=== PATIENT | female | born 1985 | race Caucasian/White ===

== ENCOUNTER 2022-10-04 15:10 | Outpatient (OUT) | payer BC, SELFPAY ==
--- NOTE | 2022-10-04 | XR_ITS ---
The [address] [address] Patient Name: PATTI HERMOSILLO MRN: [id number] date: 1985 Sex: F Assigned Patient Location: [facility] Current Patient Location: [facility] Accession/Order Number: [id number] Exam Date: 10/04/2022 00:00 Report Date: 10/05/2022 08:35 At the request of: SHADY MARTINEZ Procedure: XR shoulder RT min 2V PROCEDURE: XR shoulder RT min 2V HISTORY: Right shoulder pain; M25.511 ; acute right shoulder pain after falling COMPARISON: None. FINDINGS: BONES:No fracture, acute abnormality, or significant arthropathy. SOFT TISSUES:No visible soft tissue swelling. EFFUSION:None visible. OTHER: Negative. XR/XR shoulder RT min 2V IMPRESSION: 1. No acute bone abnormality. Electronically authenticated by: ALICIA PEÑA Date: 10/05/2022 08:35
== END 2022-10-04 15:11 | disposition home or self-care (01) ==
LOC: RAD 15:16
PROVIDERS: PCP Family Medicine; Visit Provider Family Medicine
DX: M25.511 Pain in right shoulder (principal)
CPT/HCPCS: 73030

== ENCOUNTER 2023-01-24 19:58 | Outpatient (REF) | payer BC, SELFPAY ==
[2023-01-28 16:09] LABS: Age Gdln ACOG Testing Note (.); HPV Aptima Negative (Negative); IGP, Aptima HPV, rfx 16/18,45 Note (.)
== END 2023-01-24 19:59 | disposition home or self-care (01) ==
LOC: LAB 19:58
PROVIDERS: PCP Family Medicine; Visit Provider Obstetrics & Gynecology
DX: Z12.4 Encounter for screening for malignant neoplasm of cervix (principal)
CPT/HCPCS: 87624; G0145

== ENCOUNTER 2023-02-07 08:55 | Outpatient (OUT) | payer BC, OTHER, SELFPAY ==
--- NOTE | 2023-02-07 09:00 | US_ITS ---
[address] [address] Patient Name: PATTI HERMOSILLO MRN: [id number] date: 1985 Sex: F Assigned Patient Location: US Current Patient Location: Accession/Order Number: [id number] Exam Date: 02/07/2023 09:05 Report Date: 02/07/2023 09:54 At the request of: ALDEN FLYNN Procedure: US pelvis w/ transvaginal EXAMINATION: US pelvis w/ transvaginal HISTORY: Pelvic Pain In Female R10.2, Dysmenorrhea N94.6 ; chronic pelvic pain, left greater than right COMPARISON: No relevant comparison available. TECHNIQUE: Transabdominal and/or transvaginal sonographic examination was performed as indicated by examination type. FINDINGS: UTERUS: Normal size and appearance. Uterus size: ENDOMETRIUM: IUD within endometrial cavity. Normal thickness and echogenicity of endometrium. Endometrial thickness: 6 mm RIGHT OVARY: Normal size and appearance. Duplex Doppler demonstrates normal waveform and flow; resistive index 0.6. Ovary size: 2.0 x 1.5 x 0.9 cm LEFT OVARY: Contains a 1.9 cm thick-walled cyst. Duplex Doppler demonstrates normal waveform and flow; resistive index 0.4. Ovary size: 2.9 x 2.2 x 2.2 cm CUL-DE-SAC: Unremarkable. No significant free fluid. BLADDER: Unremarkable. OTHER: None. US/US pelvis w/ transvaginal IMPRESSION: 1. Left ovary contains a 1.9 cm complex cyst. Follow-up ultrasound in 6 weeks is recommended to document regression. 2. IUD within endometrial cavity. No suspicious uterine or right ovary findings. Electronically authenticated by: ALICIA PEÑA Date: 02/07/2023 09:54
== END 2023-02-07 08:56 | disposition home or self-care (01) ==
LOC: US 08:55
PROVIDERS: PCP Family Medicine; Visit Provider Obstetrics & Gynecology
DX: R10.2 Pelvic and perineal pain (principal); N92.0 Excessive and frequent menstruation with regular cycle; N94.6 Dysmenorrhea, unspecified; N94.10 Unspecified dyspareunia; N83.292 Other ovarian cyst, left side; Z97.5 Presence of (intrauterine) contraceptive device
CPT/HCPCS: 76830; 76856

== ENCOUNTER 2024-11-05 12:12 | Outpatient (OUT) | payer OTHER, SELFPAY ==
--- OUTSIDE RECORDS SUMMARY | 2024-08-06 04:13 | XMS_ITS ---
Author Organization The [facility] in [place] Address [address] [place] [address] Care Team Providers Care Air Compressor Engineer Name Role Phone Masoodcalvin Alejandro Primary Care Provider REASON FOR VISIT Adderall refill Medications Medication SIG (Take, Route, Frequency, Duration) Notes Start Date End Date Status Adderall 5 MG 1 tablet Orally Daily 08/06/2024 Active Encounters Encounter Location Date Provider Diagnosis [facility] [address] [facility] [place] [address] 08/06/2024 Alejandro Bell ADHD F90.9 Assessments Encounter Date Diagnosis (ICD Code) Assessment Notes Treatment Notes Treatment Clinical Notes Section Notes 08/06/2024 ADHD (ICD-10 - F90.9) Plan Of Treatment Medication Medication Name Sig Start Date Stop Date Notes Adderall 5 MG 1 tablet Orally Daily 08/06/2024 Progress Notes * Lizeth HERMOSILLODOB:1985 ( 39 yo F)Acc No.[id number]:08/06/2024 Patient: Joss Camp AASsey :1985 A ge:39 Y S ex:Female Address:[address] [place], [place] [address], [place] [address] * Refills Refill Adderall Tablet, 5 MG, Orally, 30, 1 tablet, Daily, Refills=0 * true * Date: Generated for Derek landa/Hortenciag/eTransmitting on: 0 11/05/2024 12:17 PM EDT
--- OUTSIDE RECORDS SUMMARY | 2024-09-17 06:04 | XMS_ITS ---
Author Organization The [facility] in [place] Address [address] [place] [address] Care Team Providers Care High School Agriculture Teacher Name Role Phone Ray Alejandro Primary Care Provider REASON FOR VISIT rf adderall Medications Medication SIG (Take, Route, Frequency, Duration) Notes Start Date End Date Status Adderall 5 MG 1 tablet Orally Daily 09/17/2024 Active Encounters Encounter Location Date Provider Diagnosis [facility] [address] [facility] [place] [address] 09/17/2024 Alejandro Bell ADHD F90.9 Assessments Encounter Date Diagnosis (ICD Code) Assessment Notes Treatment Notes Treatment Clinical Notes Section Notes 09/17/2024 ADHD (ICD-10 - F90.9) Plan Of Treatment Medication Medication Name Sig Start Date Stop Date Notes Adderall 5 MG 1 tablet Orally Daily 09/17/2024 Progress Notes * Lizeth ARNOLDDOB:1985 ( 39 yo F)Acc No.[id number]:09/17/2024 Patient: Joss Camp AASsey :1985 A ge:39 Y S ex:Female Address:[address] [place] [address] [address], [place] [address] * Refills Refill Adderall Tablet, 5 MG, Orally, 30, 1 tablet, Daily, Refills=0 * true * Date: Generated for Niyahi ng/Faxing/eTransmitting on: 0 11/05/2024 12:17 PM EDT
--- OUTSIDE RECORDS SUMMARY | 2024-10-31 09:03 | XMS_ITS ---
Author Organization The [facility] in [place] Address [address] [place] [address] Care Team Providers Care Foundry Worker General Name Role Phone Masoodcalvin Alejandro Primary Care Provider REASON FOR VISIT refill Medications Medication SIG (Take, Route, Frequency, Duration) Notes Start Date End Date Status Adderall 5 MG 1 tablet Orally Daily 10/31/2024 Active Encounters Encounter Location Date Provider Diagnosis [facility] [address] [place] [address] 10/31/2024 Alejandro Masoodcalvin ADHD F90.9 Assessments Encounter Date Diagnosis (ICD Code) Assessment Notes Treatment Notes Treatment Clinical Notes Section Notes 10/31/2024 ADHD (ICD-10 - F90.9) Plan Of Treatment Medication Medication Name Sig Start Date Stop Date Notes Adderall 5 MG 1 tablet Orally Daily 10/31/2024 Progress Notes * Lizeth HERMOSILLODOB:1985 ( 39 yo F)Acc No.[id number]:10/31/2024 Patient: Joss Camp AASsey :1985 A ge:39 Y S ex:Female Address:[address] [place], [place] [address], [place] [address] * Refills Refill Adderall Tablet, 5 MG, Orally, 30, 1 tablet, Daily, Refills=0 * true * Date: Generated for Niyahi ng/Fathomasg/eTransmitting on: 0 11/05/2024 12:17 PM EDT
--- OUTSIDE RECORDS SUMMARY | 2024-11-05 10:30 | XMS_ITS | Encounter Summary ---
Author Organization [facility] Address [address] [place] [address] Care Team Providers Care Food Operations Manager Name Role Phone Andry Bell MD Primary Care Provider [phone] Reason for Visit * Reason Comments Contraception Removal/ Reinsert Encounter Details Date Type Department Care Team (Late Contact Info) Description 11/05/2024 10:30 AM EDT Procedure Visit [facility] [address] [place] [address] Kevin Gutierrez DO [address] [facility] [place] [address] Encounter for IUD removal Social History Tobacco [...] 12:00 PM EST documented in this encounter Plan of Treatment Upcoming Encounters Date Type Department Care Team (Late Contact Info) Description 11/21/2024 9:40 AM EDT Office Visit [facility]IL [facility] [address] [place] [address] Kevin Gutierrez, DO [address] [facility] [place] [address] 01/28/2025 9:20 AM EST Procedure Visit [facility] [address] [place] [phone] Kevin Gutierrez DO [address] [facility] [address] [place], [place] [phone] Scheduled Orders Name Type Priority Associated Diagnoses Orde r Schedule IUD Removal Procedures Routine Encounter for IUD removal Ordered: 11/05/2024 documented as of this encounter Procedures Procedure Name Priority Date/Time Associated Diagnosis Comments POCT , URINE Routine 11/05/2024 11:01 AM EDT Encounter for IUD removal documented in this encounter Results * POCT , urine manually resulted (11/05/2024 11:01 AM EDT) Preg Test, Ur Negative Negative Urine 11/05/2024 11:0 1 AM EDT Kevin Gutierrez DO POINT OF CARE TEST ENTER/EDIT OR DERABLES Final Result documented in this encounter Visit Diagnoses Diagnosis Encounter for IUD removal documented in this encounter Care Teams Food Operations Manager Relationship Specialty Start Date End Date Andry Bell MD [address] [facility] [place] [address] PCP - General 01/24/23 documented as of this encounter
--- OUTSIDE RECORDS SUMMARY | 2024-11-05 12:16 | XMS_ITS | Encounter Summary ---
Author Organization [facility] Address [address] [place] [address] Care Team Providers Care Pot Washer Name Role Phone Andry Bell MD Primary Care Provider [phone] Encounter Details Date Type Department Care Team (Late Contact Info) Description 01/10/2023 Abstract [facility]IL [facility] [place] [address] Kevin Gutierrez DO [facility] [place] [address] Social History Tobacco Use Types Packs/Day Years Used Date Smoking Tobacco: Never Tobacco Cessation:Counseling Given: Not Answered Alcohol Use Standard Drinks/Week Comments Not Asked 0 (1 standard drink = 0.6 oz pure alcohol) caffeine: 2-3 cups per day coffee Comments Unknown Sex and Gender Information Value Date Recorded Sex Assigned at Not on file Legal Sex Female 7:09 PM EDT Gender Identity Not on file Sexual Orientation Not on file documented as of this encounter Plan of Treatment Upcoming Encounters Date Type Department Care Team (Late st Contact Info) Description 11/21/2024 9:40 AM EDT Office Visit ANIL MAHARAJ [facility] [place] [phone] Kevin Gutierrez DO [facility] [place], [place] [phone] 01/28/2025 9:20 AM EST Procedure Visit [facility]IL MA[facility]AR[facility] [place] [phone] Kevin Gutierrez DO [address] [place] [address] [place] [address] documented as of this encounter Visit Diagnoses Not on filedocumented in this encounter Care Teams Pot Washer Relationship Specialty Start Date End Date Andry Bell MD [address] [facility] [place] [address] PCP - General 01/24/23 documented as of this encounter
--- OUTSIDE RECORDS SUMMARY | 2024-11-05 12:16 | XMS_ITS | Encounter Summary ---
Author Organization [facility] Address [address] [place] [address] Care Team Providers Care Pastrycook'S Assistant Name Role Phone Andry Bell MD Primary Care Provider [phone] Encounter Details Date Type Department Care Team (Late st Contact Info) Description 02/07/2023 Clinisync Result Encounter [facility] External Department Unsolicited Alden Gutierrez, DO [address] [place] [address] Social History Tobacco Use Types Packs/Day Years [...] on file Sexual Orientation Not on file COVID-19 Exposure Response Date Recorded In the last 10 days, have yo u been in contact with someone who was confirmed or suspected to have Coronavirus/COVID-19? No / Unsure 01/24/2023 9:44 AM EDT documented as of this encounter Plan of Treatment Upcoming Encounters Date Type Department Care Team (Late st Contact Info) Description 11/21/2024 9:40 AM EDT Office Visit [facility] [place] [address] [place] [address] Alden Gutierrez DO [address] [place] [address] 01/28/2025 9:20 AM EST Procedure Visit [facility] [address] [address] Alden Gutierrez DO [address] [place] [address] documented as of this encounter Procedures Procedure Name Priority Date/Time Associated Diagnosis Comments US PELVIS W/ TRANSVAGINAL 02/07/2023 9:54 AM EST documented in this encounter Results * US PELVIS W/ TRANSVAGINAL (02/07/2023 9:54 AM EST) Anatomical Region Laterality Modality Other 02/07/2023 9:54 AM EST Narrative 02/07/2023 9:54 AM EST The [address] [address] Ultrasound Report Signed Patient: PATTI ARNOLD MR#: [id number] : 1985 Acct:[id number] Age/Sex: 38 / F ADM Date: 02/07/23 Loc: US Attending Dr: Alden Gutierrez D.O. Ordering Physician: Alden Gutierrez D.O. Date of Service: 02/07/23 Procedure(s): US pelvis w/ transvaginal Accession Number(s): [id number] cc: Heather Shi M.D.; Alden Gutierrez D.O. The [address] [address] Patient Name: PATTI ARNOLD MRN: [id number] date: 1985 Sex: F Assigned Patient Location: US Current Patient Location: US Accession/Order Number: [id number] Exam Date: 02/07/2023 09:05 Report Date: 02/07/2023 09:54 At the request of: ALDEN GUTIERREZ Procedure: US pelvis w/ transvaginal EXAMINATION: US pelvis w/ transvaginal HISTORY: Pelvic Pain In Female R10.2, Dysmenorrhea N94.6 ; chronic pelvic pain, left greater than right COMPARISON: No relevant comparison available. TECHNIQUE: Transabdominal and/or transvaginal sonographic examination was performed as indicated by examination type. FINDINGS: UTERUS: Normal size and appearance. Uterus size: ENDOMETRIUM: IUD within endometrial cavity. Normal thickness and echogenicity of endometrium. Endometrial thickness: 6 mm RIGHT OVARY: Normal size and appearance. Duplex Doppler demonstrates normal waveform and flow; resistive index 0.6. Ovary size: 2.0 x 1.5 x 0.9 cm LEFT OVARY: Contains a 1.9 cm thick-walled cyst. Duplex Doppler demonstrates normal waveform and flow; resistive index 0.4. Ovary size: 2.9 x 2.2 x 2.2 cm CUL-DE-SAC: Unremarkable. No significant free fluid. BLADDER: Unremarkable. OTHER: None. US/US pelvis w/ transvaginal IMPRESSION: 1. Left ovary contains a 1.9 cm complex cyst. Follow-up ultrasound in 6 weeks is recommended to document regression. 2. IUD within endometrial cavity. No suspicious uterine or right ovary findings. Electronically authenticated by: THEODORE LIU Date: 02/07/2023 09:54 Dictated By: Theodore Liu M.D. Signed By: 02/07/2357 DD/ TD/TT: Repair Electric Motor Assembler: Procedure Note Radiology, Radiologist, - 02/07/2023 [place] [address] Ultrasound Report Signed Patient: PATTI ARNOLD NMR#: [id number] : 1985Acct:[id number] Age/Sex: 38 / FADM Date: 02/07/23 Loc: US Attending Dr: Alden Gutierrez D.O. Ordering Physician: Alden Gutierrez D.O. Date of Service: 02/07/23 Procedure(s): US pelvis w/ transvaginal Accession Number(s): [id number] cc: Heather Shi M.D.; Alden Gutierrez D.O. The [place] [id number] Patient Name: PATTI ARNOLD MRN: [id number] date: 1985 Sex: F Assigned Patient Location: US Current Patient Location: US Accession/Order Number: [id number] Exam Date: 02/07/2023 09:05 Report Date: 02/07/2023 09:54 At the request of: ALDEN GUTIERREZ Procedure: US pelvis w/ transvaginal EXAMINATION: US pelvis w/ transvaginal HISTORY: Pelvic Pain In Female R10.2, Dysmenorrhea N94.6 ; chronic pelvic pain, left greater than right COMPARISON: No relevant comparison available. TECHNIQUE: Transabdominal and/or transvaginal sonographic examination was performed as indicated by examination type. FINDINGS: UTERUS: Normal size and appearance. Uterus size: ENDOMETRIUM: IUD within endometrial cavity. Normal thickness andechogenicity of endometrium. Endometrial thickness: 6 mm RIGHT OVARY: Normal size and appearance. Duplex Doppler demonstratesnormal waveform and flow; resistive index 0.6. Ovary size: 2.0 x 1.5 x 0.9 cm LEFT OVARY: Contains a 1.9 cm thick-walled cyst. Duplex Dopplerdemonstrates normal waveform and flow; resistive index 0.4. Ovary size: 2.9 x 2.2 x 2.2cm CUL-DE-SAC: Unremarkable. No significant free fluid. BLADDER: Unremarkable. OTHER: None. US/US pelvis w/ transvaginal IMPRESSION: 1. Left ovary contains a 1.9 cm complex cyst. Follow-up ultrasound in 6weeks is recommended to document regression. 2. IUD within endometrial cavity. No suspicious uterine or right ovary findings. Electronically authenticated by: THEODORE LIU Date: 02/07/2023 09:54 Dictated By: Theodore Liu M.D. Signed By:02/07/23956 DD/ 3 TD/TT: Repair Electric Motor Assembler: us Alden Gutierrez DO [facility] Final Result documented in this encounter Visit Diagnoses Not on filedocumented in this encounter Care Teams Pastrycook'S Assistant Relationship Specialty Start Date End Date Andry Bell MD [address] [place] [address] PCP - General 01/24/23 documented as of this encounter
--- OUTSIDE RECORDS SUMMARY | 2024-11-05 12:17 | XMS_ITS | Clinical Summary ---
Author Organization [facility] Address [address] [place] [address] Care Team Providers Care Broke Handler Name Role Phone Andry Bell MD Primary Care Provider [phone] Allergies Active Allergy Reactions Criticality Noted Date Comments Doxycycline 10/25/2019 Hydromorphone 10/25/2019 Medications ALPRAZolam (Xanax) 0.25 MG tablet Take 0.25 mg by mouth in the morning. Active escitalopram (Lexapro) 10 MG tablet Take 20 mg by mouth in the morning. 02/23/20 22 2024 Discontinued eszopiclone (Lunesta) 2 MG tablet Take 2 mg by mouth as needed at bedtime for sleep. 11/30/19 23 2024 Discontinued Levonorgestrel (Mirena, 52 MG,) 20 MCG/DAY intrauterine device 1 Device by Intrauterine route. 2024 Discontinued Hospital, Clinic, or Other Facility Administered Medication Ordered Dose Route Frequency Start Date End Date Status Levonorgestrel intrauterine device 19.5 mgIndications:Encoun ter for IUD removal 19.5 mg IU Continuous 11/05/2024 11/05/2024 Disco ntinued Encounters Date Type Department Care Team Description 11/05/2024 10:30 AM EDT [place] [address] Kevin Gutierrez DO Encounter for IUD removal 11/04/2024 Travel 10/28/2024 [place] [phone] Naomy Moreno LPN 10/11/2024 Telephone [facility] [place] MAHARAJ [address] [place] [address] [place] [address] HiroXiao quanKATELYNN from Last 3 Months Family History Relation Name Status Comments Brother 1 Father Alive Mother Alive Sister 2 Son 1 Alive Son 2 Alive Social History Tobacco Use Types Packs/Day Years [...] on file Sexual Orientation Not on file Last Filed Vital Signs Vital Sign Reading Time Taken Comments Blood Pressure 124/82 11/05/2024 10:52 AM EDT Pulse - - Temperature - - Respiratory Rate - - Oxygen Saturation - - Inhaled Oxygen Concentration - - Weight 42.4 kg (93 lb 6.4 oz) 11/05/2024 10:52 A M EDT Height 157.5 cm (5' 2 ) 04/01/2019 12:00 PM EST Body Mass Index 17.08 04/01/2019 12:00 PM EST Plan of Treatment Upcoming Encounters Date Type Department Care Team (Late st Contact Info) Description 11/21/2024 9:40 AM EDT Office Visit [facility] [place] MAHARAJ [address] [place] [address] [place] [address] Kevin Gutierrez DO [address] [place] [address] [place] [address] 01/28/2025 9:20 AM EST Procedure Visit [facility] MA[facility] [address] [place], [place] [address] [address] Kevin Gutierrez DO [address] [place] [address] [place] [address] Procedures Procedure Name Priority Date/Time Associated Diagnosis Comments POCT , URINE Routine 11/05/2024 11:01 AM EDT Encounter for IUD removal from Last 3 Months Results * POCT , urine manually resulted (11/05/2024 11:01 AM EDT) Preg Test, Ur Negative Negative Urine 11/05/2024 11:0 1 AM EDT Kevin Matt DO POINT OF CARE TEST ENTER/EDIT OR DERABLES Final Result from Last 3 Months Insurance [employer] Care Teams Broke Handler Relationship Specialty Start Date End Date Andry Bell MD [address] [place] [address] PCP - General 01/24/23
--- OUTSIDE RECORDS SUMMARY | 2024-11-05 12:17 | XMS_ITS | Patient Health Record ---
Author Organization [facility] [place] Address [address] [place] [address] Care Team Providers Care Car Hop Name Role Phone Alejandro Bell Primary Care Provider [phone] Allergies No Known Allergies Reason For Referral No Information Medications Medication SIG (Take, Route, Frequency, Duration) Notes Start Date End Date Status Adderall 5 MG 1 tablet Orally Daily 10/31/2024 Active ALPRAZolam 0.25 MG 1 tablet Orally once daily as needed F41.9 05/14/2024 Active Ventolin HFA 108 (90 Base) MCG/ACT 2 puff as needed Inhalation every 4 hrs 03/06/2024 Active Fioricet 50-300-40 MG 1 capsule as needed Orally every 4 hrs - prn Dx Migraine (G43.1) , [id number] 03/07/2024 Active Social History Tobacco Use: Social History Observation Description Date Details (start date - stop date) Never Smoker NA - NA Alcohol Screen (Audit-C) Question Answer Notes Did you have a drink contain ing alcohol in the past year? Yes How often did you have 6 or more drinks on one occasion in the past year? Never (0 point) How many drinks did you have on a typical day when you were drinking in the past year? 5 or 6 drinks (2 points) How often did you have a dri nk containing alcohol in the past year? Monthly (2 points) Points 4 Interpretation Positive Tobacco Control (Standard) Question Answer Notes Tobacco use: Nonsmoker AUDIT-C (Standard) Question Answer Notes Did you have a drink contain ing alcohol in the past year? Yes How often did you have six o r more drinks on one occasion in the past year? Never (0 point) How many drinks did you have on a typical day when you were drinking in the past year? 1 or 2 drinks (0 point) How often did you have a dri nk containing alcohol in the past year? 2 to 3 times a week (3 points) Points 3 Interpretation Positive Problems Problem Type SNOMED Code ICD Code Onset Dates Problem Status W/U Status Risk Notes Problem [id number] Calculus of kidney (N20.0) Active confirmed Problem Anxiety (40709151) Anxiety (F41.9) Active confirmed Problem Depression (776954372) Depression (F32.9) Active confirmed Problem Migraine (71019682) Migraine (G43.909) Active confirmed Problem Attention deficit hyperactivity disorder (183957936) ADHD (F90.9) Active confirmed Vital Signs Blood pressure diastolic 68 mm Hg 07/15/2024 Height 62.5 in 07/15/2024 Blood pressure systolic 108 mm Hg 07/15/2024 Weight 95.6 lbs 07/15/2024 BMI 17.2 kg/m2 07/15/2024 Encounters Encounter Location Date Provider Diagnosis [address] [address] 12/15/2023 Alejandro Hoy ADHD F90.[address] [address] 07/15/2024 Alejandro Hoy Depression F32.9 ; Anxiety F41.9 ; ADHD F90.9 and Well adult exam Z00.[address] [address] 11/13/2023 Alejandro Hoy [address] [address] 01/16/2024 Alejandro Hoy ADHD F90.[address] [address] 02/16/2024 Alejandro Hoy ADHD F90.[address] [address] 03/06/2024 Alejandro Hoy Migraine G43.[address] [address] 03/07/2024 Alejandro Hoy Migraine G43.[address] [address] 03/19/2024 Alejandro Hoy ADHD F90.9 [facility] [address] [facility] [place] [address] 04/19/2024 Alejandro Hoy ADHD F90.9 [facility] [address] [place] [facility] [address] 05/14/2024 Alejandro Hoy [facility] [address] [place] [facility] [address] 05/21/2024 Alejandro Hoy ADHD F90.9 [facility] [address] [facility] [place] [address] 07/03/2024 Alejandro Hoy ADHD F90.9 [facility] [address] [facility] [place] [address] 08/06/2024 Alejandro Hoy ADHD F90.9 [facility] [address] [facility] [place] [address] 09/17/2024 Alejandro Hoy ADHD F90.9 [facility] [address] [facility] [place] [address] 10/31/2024 Alejandro Hoy ADHD F90.9 Assessments Encounter Date Diagnosis (ICD Code) Assessment Notes Treatment Notes Treatment Clinical Notes Section Notes 01/16/2024 ADHD (ICD-10 - F90.9) 02/16/2024 ADHD (ICD-10 - F90.9) 03/06/2024 Migraine (ICD-10 - G43.909) 03/07/2024 Migraine (ICD-10 - G43.909) 03/19/2024 ADHD (ICD-10 - F90.9) 04/19/2024 ADHD (ICD-10 - F90.9) 05/21/2024 ADHD (ICD-10 - F90.9) 07/03/2024 ADHD (ICD-10 - F90.9) 08/06/2024 ADHD (ICD-10 - F90.9) 09/17/2024 ADHD (ICD-10 - F90.9) 10/31/2024 ADHD (ICD-10 - F90.9) 12/15/2023 ADHD (ICD-10 - F90.9) controled [facility] meds 07/15/2024 Anxiety (ICD-10 - F41.9) cuttin back on alporazolam 07/15/2024 Depression (ICD-10 - F32.9) able to wean of lexapro 07/15/2024 ADHD (ICD-10 - F90.9) able to wan adhd meds 07/15/2024 Well adult exam (ICD-10 - Z00.00) Plan Of Treatment Pending Test Test Name Order Date HEMOGLOBIN A1C (GLYCO) 07/15/2024 IRON, TOTAL 07/15/2024 LIPID PANEL (CHOL/TRIG/HDL/LDL) 07/16/19 25 VITAMIN D, 25 LEVEL (TOTAL) 07/15/2024 UA (URINALYSIS), COMPLETE (98312) - IN O FFICE 12/22/2022 Insulin Level 07/15/2024 STOOL OCCULT BLOOD 07/15/2024 THYROID PANEL (T4/TSH/FREE T3) CMP (COMP MET HEADLEY) w/eGFR CKD-EPI 2024 CBC WITH DIFF 07/15/2024 Insurance Providers Payer Name Payer Address Payer Phone Subscriber Number Group Number Insured Name Patient Relationship to Insured Coverage Start Date Coverage End Date O [address] [place], [place] [id number] Lizeth Arnold Self - patient is the insured Medications Administered Medication Instructions Date of Administration Dosage Notes Ketorolac Tromethamine 12/22/2022 60 mg Ketorolac Tromethamine 12/29/2022 60 mg Medical (General) History Medical History History ICD Code Asthma J45.909 Anxiety F41.9 Depression F32.9 Fibrocystic breast N60.19 Lump of right breast N63.10 Migraine G43.909 Surgical History Surgery Date(Month/Year) DELIVERYx2 Mirena removal CHOLECYSTECTOMY
--- OUTSIDE RECORDS SUMMARY | 2024-11-05 12:17 | XMS_ITS | Encounter Summary ---
Author Organization [facility] Address [address] [place] [address] Care Team Providers Care Correctional Facility Nurse Name Role Phone Andry Bell MD Primary Care Provider [phone] Encounter Details Date Type Department Care Team (Late Contact Info) Description 10/28/2024 Orders Only [facility]IL [facility] [place] [address] Naomy Moreno LPN [address] [place] [address] Social History Tobacco Use Types Packs/Day Years [...] Description 11/21/2024 9:40 AM EDT Office Visit [facility] [place] [address] Kevin Gutierrez DO [address] [place] [address] Dr Niesha Stern, [facility] 01/28/2025 9:20 AM EST Procedure Visit ANIL MAHARAJ [address] [place] [address] [place] [address] Kevin Gutierrez, DO [address] [place] [address] [place] [address] documented as of this encounter Procedures Procedure Name Priority Date/Time Associated Diagnosis Comments PAP SMEAR Routine 01/24/2023 12:00 AM EDT documented in this encounter Results * Pap Smear (01/24/2023 12:00 AM EDT) Swab Cervical swab / Unknown Matt Nurse [facility] CYTOLOGY ORDERABLES Final Result EXTERNAL LAB documented in this encounter Visit Diagnoses Not on filedocumented in this encounter Care Teams Correctional Facility Nurse Relationship Specialty Start Date End Date Andry Bell MD [address] [facility] [place] [place] [address] PCP - General 01/24/23 documented as of this encounter
--- OUTSIDE RECORDS SUMMARY | 2024-11-05 12:17 | XMS_ITS | Clinical Summary ---
Author Organization [facility] Address [address] [place] [address] Care Team Providers Care Acetylene Torch Solderer Name Role Phone Heather Shi MD Primary Care Provider [phone] Allergies Active Allergy Reactions Criticality Noted Date Comments Hydromorphone 10/25/2019 Doxycycline 10/25/2019 Medications ALPRAZolam 0.25 MG tablet Take 0.25 mg by mouth 3 times daily as needed. Active levonorgestrel (Mirena, 52 MG,) 20 MCG/24HR 1 Device by Intrauterine route Once. use as directed Active Active Problems Problem Noted Date Diagnosed Date Mass of breast, right 10/30/2019 Family History Medical History Relation Name Comments Diabetes Maternal Grandfather Breast Cancer Maternal Grandmother Matern al Great Grandmother. Other - Specify Mother skin cancer Other - Specify Paternal Grandfather Skin cancer Relation Name Status Comments Maternal Grandfather Maternal Grandmother Mother Paternal Grandfather Social History Tobacco Use Types Packs/Day Years Used Date Smoking Tobacco: Never Smokeless Tobacco: Never Alcohol Use Standard Drinks/Week Comments Yes 0 (1 standard drink = 0.6 oz pur e alcohol) occasional Comments Unknown Sex and Gender Information Value Date Recorded Sex Assigned at Not on file Legal Sex Female 9:51 AM EDT Gender Identity Not on file Sexual Orientation Not on file Last Filed Vital Signs Vital Sign Reading Time Taken Comments Blood Pressure 126/92 10/30/2019 1:32 PM EDT Pulse 100 10/30/2019 1:32 PM EDT Temperature 37 C (98.6 F) 10/30/2019 1:32 PM EDT Respiratory Rate - - Oxygen Saturation - - Inhaled Oxygen Concentration - - Weight 54.3 kg (119 lb 9.6 oz) 12/09/2019 2:36 P M EDT Height 157.5 cm (5' 2 ) 12/09/2019 2:36 PM EDT Body Mass Index 21.88 12/09/2019 2:36 PM EDT Plan of Treatment Health Maintenance Due Date Last Done Comments HEPATITIS C VIRUS SCREENING 1985 TETANUS 1985 HIV SCREENING DISCUSSION 01/15/2000 HEP B VACCINE (1 of 3 - 19+ 3-dose series) 01/15/2004 TDAP (ADULT) 01/15/2004 CERVICAL CANCER SCREENING DISCUSSION 2006 HPV VACCINE (1 - 3-dose SCDM series) 01/15/2012 COVID-19 VACCINE ( - 2023-2 5 season) 2023 INFLUENZA VACCINE (#1) 2024 PNEUMOCOCCAL VACCINE SERIES Aged Out No longer eligible based on patient's age to complete this topic Insurance PPO POS Care Teams Acetylene Torch Solderer Relationship Specialty Start Date End Date Heather Shi MD PCP - General Family Medicine 12/09/19
--- OUTSIDE RECORDS SUMMARY | 2024-11-05 12:17 | XMS_ITS | Encounter Summary ---
Author Organization [facility] Address [address] [place] [address] Care Team Providers Care Tar Boiler Name Role Phone Andry Bell MD Primary Care Provider [phone] Encounter Details Date Type Department Care Team (Latest Contact Info) Description 11/04/2024 Travel Social History Tobacco Use Types Packs/Day Years [...] Upcoming Encounters Date Type Department Care Team ( Contact Info) Description 11/21/2024 9:40 AM EDT Office Visit ANIL MAHARAJ [address] [place], [place] [address] [address] Kevin Gutierrez DO [address] [place], [place] [address] 01/28/2025 9:20 AM EST Procedure Visit ANIL MAHARAJ [address] [place] [address] Kevin Gutierrez DO [address] [place], [place] [phone] documented as of this encounter Visit Diagnoses Not on filedocumented in this encounter Care Teams Tar Boiler Relationship Specialty Start Date End Date Andry Bell MD [address] [place] [phone] PCP - General 01/24/23 documented as of this encounter
== END 2024-11-05 12:13 | disposition home or self-care (01) ==
PROVIDERS: PCP Family Medicine; Visit Provider Obstetrics & Gynecology
DX: Z01.818 Encounter for other preprocedural examination (principal); T83.39XA Other mechanical complication of intrauterine contraceptive device, initial encounter

== ENCOUNTER 2024-11-07 11:42 | Day surgery (SDC) | payer OTHER, SELFPAY ==
--- OUTSIDE RECORDS SUMMARY | 2024-08-06 04:13 | XMS_ITS ---
Author Organization The [facility] in [place] Address [address] [place] [address] Care Team Providers Care Manager Culinary Name Role Phone Masoodcalvin Alejandro Primary Care Provider [phone] REASON FOR VISIT Adderall refill Medications Medication SIG (Take, Route, Frequency, Duration) Notes Start Date End Date Status Adderall 5 MG 1 tablet Orally Daily 08/06/2024 Active Encounters Encounter Location Date Provider Diagnosis [facility] [address] [facility] [address] 08/06/2024 Alejandro Bell ADHD F90.9 Assessments Encounter Date Diagnosis (ICD Code) Assessment Notes Treatment Notes Treatment Clinical Notes Section Notes 08/06/2024 ADHD (ICD-10 - F90.9) Plan Of Treatment Medication Medication Name Sig Start Date Stop Date Notes Adderall 5 MG 1 tablet Orally Daily 08/06/2024 Progress Notes * Lizeth HERMOSILLODOB:1985 ( 39 yo F)Acc No.[id number]:08/06/2024 Patient: Joss Camp AASsey :1985 A ge:39 Y S ex:Female Address:[address] [place] [address] [address], [place] [address] * Refills Refill Adderall Tablet, 5 MG, Orally, 30, 1 tablet, Daily, Refills=0 * true * Date: Generated for Derek landa/Porsha/eTransmitting on: 0 11/07/2024 11:46 AM EDT
--- OUTSIDE RECORDS SUMMARY | 2024-09-17 06:04 | XMS_ITS ---
Author Organization The [facility] in [place] Address [address] [place] [address] Care Team Providers Care Structural Steel Engineer Name Role Phone Ray Alejandro Primary Care Provider REASON FOR VISIT rf adderall Medications Medication SIG (Take, Route, Frequency, Duration) Notes Start Date End Date Status Adderall 5 MG 1 tablet Orally Daily 09/17/2024 Active Encounters Encounter Location Date Provider Diagnosis [facility] [address] [facility] [address] 09/17/2024 Alejandro Bell ADHD F90.9 Assessments Encounter Date Diagnosis (ICD Code) Assessment Notes Treatment Notes Treatment Clinical Notes Section Notes 09/17/2024 ADHD (ICD-10 - F90.9) Plan Of Treatment Medication Medication Name Sig Start Date Stop Date Notes Adderall 5 MG 1 tablet Orally Daily 09/17/2024 Progress Notes * Lizeth ARNOLDDOB:1985 ( 39 yo F)Acc No.[id number]:09/17/2024 Patient: Joss Camp AASsey :1985 A ge:39 Y S ex:Female Address:[address] [place] [address] [address], [place] [address] * Refills Refill Adderall Tablet, 5 MG, Orally, 30, 1 tablet, Daily, Refills=0 * true * Date: Generated for Niyahi ng/Faxing/eTransmitting on: 0 11/07/2024 11:45 AM EDT
--- OUTSIDE RECORDS SUMMARY | 2024-10-31 09:03 | XMS_ITS ---
Author Organization The [facility] in [place] Address [address] [place] [address] Care Team Providers Care Manager Behavior Name Role Phone Masoodcalvin Alejandro Primary Care Provider [phone] REASON FOR VISIT refill Medications Medication SIG (Take, Route, Frequency, Duration) Notes Start Date End Date Status Adderall 5 MG 1 tablet Orally Daily 10/31/2024 Active Encounters Encounter Location Date Provider Diagnosis [facility] [address] [place] [address] 10/31/2024 Alejandro Bell ADHD F90.9 Assessments Encounter Date Diagnosis (ICD Code) Assessment Notes Treatment Notes Treatment Clinical Notes Section Notes 10/31/2024 ADHD (ICD-10 - F90.9) Plan Of Treatment Medication Medication Name Sig Start Date Stop Date Notes Adderall 5 MG 1 tablet Orally Daily 10/31/2024 Progress Notes * Lizeth HERMOSILLODOB:1985 ( 39 yo F)Acc No.[id number]:10/31/2024 Patient: Joss Camp AASsey :1985 A ge:39 Y S ex:Female Address:[address] [place], [place] [address], [place] [address] * Refills Refill Adderall Tablet, 5 MG, Orally, 30, 1 tablet, Daily, Refills=0 * true * Date: Generated for Derek landa/Fathomasg/eTransmitting on: 0 11/07/2024 11:45 AM EDT
--- OUTSIDE RECORDS SUMMARY | 2024-11-05 10:30 | XMS_ITS | Encounter Summary ---
Author Organization [facility] Address [address] [place] [address] Care Team Providers Care Modeling Agent Name Role Phone Andry Bell MD Primary Care Provider [phone] Reason for Visit * Reason Comments Contraception Removal/ Reinsert Encounter Details Date Type Department Care Team (Late st Contact Info) Description 11/05/2024 10:30 AM EDT Procedure [facility] [address] [place] [address] Kevin Gutierrez DO [address] [facility] [place] [address] Encounter for IUD removal Social History Tobacco Use Types Packs/Day Years Used Date Smoking Tobacco: Never Alcohol Use Standard Drinks/Week Comments Not Asked 0 (1 standard drink = 0.6 oz pure alcohol) caffeine: 2-3 cups per day coffee Comments No Sex and Gender Information Value Date Recorded Sex Assigned at Not on file Legal Sex Female 7:09 PM EDT Gender Identity Not on file Sexual Orientation Not on file documented as of this encounter Last Filed Vital Signs Vital Sign Reading Time Taken Comments Blood Pressure 124/82 11/05/2024 10:52 AM EDT Pulse - - Temperature - - Respiratory Rate - - Oxygen Saturation - - Inhaled Oxygen Concentration - - Weight 42.4 kg (93 lb 6.4 oz) 11/05/2024 10:52 A M EDT Height - - Body Mass Index 17.08 04/01/2019 12:00 PM EST documented in this encounter Progress Notes * Lindsay Lorenz LPN - 11/05/2024 10:30 AM EDTAssociated Order(s): IUD Removal Post-Procedure Diagnose(s): Encounter for IUD removal Reason for Appointment: Patient ID: Lizeth Arnold is a 39 y.o. female who presents for Contraception (Removal/ Reinsert) Patient presents today for a IUD Removal appointment. MEDICATIONS Current Outpatient Medications Medication Instructions ALPRAZolam (XANAX) 0.25 mg, Daily ALLERGIES Allergies Allergen Reactions Doxycycline Hydromorphone PROBLEMS Active Ambulatory Problems Diagnosis Date Noted No Active Ambulatory Problems Resolved Ambulatory Problems Diagnosis Date Noted No Resolved Ambulatory Problems Past Medical History: Diagnosis Date Seasonal allergies HISTORY PAST MEDICAL HISTORY SOCIAL HISTORY Past Medical History: Diagnosis Date Seasonal allergies Social History Tobacco Use Smoking status: Never Smokeless tobacco: Not on file Substance Use Topics Alcohol use: Not on file Comment: caffeine: 2-3 cups per day coffee Drug use: Not on file FAMILY HISTORY No family history on file. SURGICAL HISTORY History reviewed. No pertinent surgical history. REVIEW OF SYSTEMS Review of Systems: Review of Systems Constitutional: Negative. HENT: Negative. Eyes: Negative. Respiratory: Negative. Cardiovascular: Negative. Gastrointestinal: Negative. Genitourinary: Negative. Musculoskeletal: Negative. Skin: Negative. Neurological: Negative. All other systems reviewed and are negative. Hematological: Negative. Endocrine: Negative. Allergic/Immunologic: Negative. OBJECTIVE Objective: Physical Exam Constitutional: Appearance: Normal appearance. She is well-developed. Genitourinary: Vulva normal. Cardiovascular: Rate and Rhythm: Normal rate and regular rhythm. Pulmonary: Effort: Pulmonary effort is normal. Breath sounds: Normal breath sounds. Abdominal: General: Bowel sounds are normal. There is no distension. Palpations: Abdomen is soft. Tenderness: There is no abdominal tenderness. There is no guarding or rebound. Musculoskeletal: General: No swelling. Normal range of motion. Right lower leg: No edema. Left lower leg: No edema. Neurological: Mental Status: She is alert and oriented to person, place, and time. Skin: General: Skin is warm and dry. Psychiatric: Mood and Affect: Mood normal. Behavior: Behavior normal. Vitals and nursing note reviewed. Exam conducted with a radio repairer present. Vitals: Estimated body mass index is 17.08 kg/m?? as calculated from the following: Height as of 04/01/19: 5' 2 . Weight as of this encounter: 93 lb 6.4 oz. BP: 124/82 No LMP recorded. (Menstrual status: IUD). ASSESSMENT & PLAN Assessment/Plan Encounter Diagnosis: ICD-10-CM 1. Encounter for IUD removal Z30.432 POCT , urine manually resulted DISCONTINUED: Levonorgestrel intrauterine device 19.5 mg CANCELED: POCT urinalysis dipstick manually resulted IUD Removal Date/Time: 11/05/2024 11:28 AM Performed by: Kevin Gutierrez DO Authorized by: Kevin Gutierrez DO Consent: Consent obtained: Written Consent given by: Patient Procedure risks and benefits discussed: yes Patient questions answered: yes Patient agrees, verbalizes understanding, and wants to proceed: yes Educational handouts given: yes Instructions and paperwork completed: yes [place] protocol: Patient states understanding of procedure being performed: yes Relevant documents present and verified: yes Test results available and properly labeled: yes Imaging studies available: yes Required blood products, implants, devices, and special equipment available: yes Site marked: yes Procedure: Removed with no complications: no Comments: IUD Removal: Patient presents today for removal of IUD. Written consent was obtained and patient was placed in dorsal lithotomy position with feet in stirrups. A sterile speculum was inserted into the vagina and the cervix was visualized. The IUD strings were grasped gently with forceps. Iud unable to be removed. Pt to be scheduled for surgery to remove IUD. Consents signed and pt to proceed to OR. Follow Up: Patient is to return to the office for annual exam unless needed otherwise Documented by Lindsay Lorenz LPN on behalf of: Kevin Gutierrez DO documented in this encounter Plan of Treatment Upcoming Encounters Date Type Department Care Team (Late st Contact Info) Description 11/21/2024 9:40 AM EDT Office Visit [facility] [address] [place] [phone] Kevin Gutierrez DO [address] [place] [address] 01/28/2025 9:20 AM EST Procedure Visit [facility] [address] [place] [address] Kevin Gutierrez DO [address] [place] [address] documented as of this encounter Procedures Procedure Name Priority Date/Time Associated Diagnosis Comments IUD REMOVAL Routine 11/05/2024 11:28 AM EDT Encounter for IUD removal POCT , URINE Routine 11/05/2024 11:01 AM EDT Encounter for IUD removal documented in this encounter Results * IUD Removal (11/05/2024 11:28 AM EDT) Lindsay Fraser LPN - 11/05/2024 11:28 AM EDT Lindsay Lorenz LPN 11/06/2024 10:44 AM IUD Removal Date/Time: 11/05/2024 11:28 AM Performed by: Kevin Gutierrez DO Authorized by: Kevin Gutierrez DO Consent: Consent obtained: Written Consent given by: Patient Procedure risks and benefits discussed: yes Patient questions answered: yes Patient agrees, verbalizes understanding, and wants to proceed: yes Educational handouts given: yes Instructions and paperwork completed: yes [place] protocol: Patient states understanding of procedure being performed: yes Relevant documents present and verified: yes Test results available and properly labeled: yes Imaging studies available: yes Required blood products, implants, devices, and special equipment available: yes Site marked: yes Procedure: Removed with no complications: no Comments: IUD Removal: Patient presents today for removal of IUD. Written consent was obtained and patient was placed in dorsal lithotomy position with feet in stirrups. A sterile speculum was inserted into the vagina and the cervix was visualized. The IUD strings were grasped gently with forceps. Iud unable to be removed. Pt to be scheduled for surgery to remove IUD. Consents signed and pt to proceed to OR. Follow Up: Patient is to return to the office for annual exam unless needed otherwise us Kevin Gutierrez DO IN CLINIC/BEDSIDE ORDERABLES Fin al Result * POCT , urine manually resulted (11/05/2024 11:01 AM EDT) Preg Test, Ur Negative Negative Urine 11/05/2024 11:0 1 AM EDT Kevin Gutierrez DO POINT OF CARE TEST ENTER/EDIT OR DERABLES Final Result documented in this encounter Visit Diagnoses Diagnosis Encounter for IUD removal documented in this encounter Care Teams Modeling Agent Relationship Specialty Start Date End Date Andry Bell MD [address] [place] [address] PCP - General 01/24/23 documented as of this encounter
[2024-11-05 12:54] VITALS: BP 101/66; PULSE 78; TEMP 36.4; O2SAT 99; BMI 17.0
--- OUTSIDE RECORDS SUMMARY | 2024-11-07 11:45 | XMS_ITS | Encounter Summary ---
Author Organization [facility] Address [address] [place] [address] Care Team Providers Care Geometrician Name Role Phone Andry Bell MD Primary Care Provider [phone] Encounter Details Date Type Department Care Team (Late Contact Info) Description 01/10/2023 Abstract ANIL MAHARAJ [facility] [place] [address] Kevin Gutierrez DO [facility] [place] [address] Social History Tobacco Use Types Packs/Day Years [...] 9:40 AM EDT Office Visit ANIL MAHARAJ [facility] [place] [phone] Kevin Gutierrez DO [facility] [place], [place] [address] 01/28/2025 9:20 AM EST Procedure Visit ANIL MAHARAJ [facility] [place] [address] Kevin Gutierrez DO [address] [place] [address] [place] [address] documented as of this encounter Visit Diagnoses Not on filedocumented in this encounter Care Teams Geometrician Relationship Specialty Start Date End Date Andry Bell MD [address] [facility] [place] [address] PCP - General 01/24/23 documented as of this encounter
--- OUTSIDE RECORDS SUMMARY | 2024-11-07 11:45 | XMS_ITS | Encounter Summary ---
Author Organization [facility] Address [address] [place] [address] Care Team Providers Care Computer Operations Manager Name Role Phone Andry Bell MD Primary Care Provider [phone] Encounter Details Date Type Department Care Team (Late st Contact Info) Description 02/07/2023 Clinisync Result Encounter [facility] External Department Unsolicited Alden Gutierrez, DO [address] [place] [address] Social History Tobacco Use Types Packs/Day Years [...] Visit [facility] [place] OBESTR[facility] [address] [place] [address] Alden Gutierrez DO [address] [place] [address] 01/28/2025 9:20 AM EST Procedure Visit [facility] [address] [place] [address] Alden Gutierrez DO [address] [place] [address] documented as of this encounter Procedures Procedure Name Priority Date/Time Associated Diagnosis Comments US PELVIS W/ TRANSVAGINAL 02/07/2023 9:54 AM EST documented in this encounter Results * US PELVIS W/ TRANSVAGINAL (02/07/2023 9:54 AM EST) Anatomical Region Laterality Modality Other 02/07/2023 9:54 AM EST Narrative 02/07/2023 9:54 AM EST The [address] [address] Ultrasound Report Signed Patient: PATTI ARNOLD MR#: [id number] : 1985 Acct:[id number] Age/Sex: 38 / F ADM Date: 02/07/23 Loc: US Attending Dr: Alden Gutierrez D.O. Ordering Physician: Alden Gutierrez D.O. Date of Service: 02/07/23 Procedure(s): US pelvis w/ transvaginal Accession Number(s): [id number] cc: Heather Shi M.D.; Alden Gutierrez D.O. The [address] [address] Patient Name: PATTI ARNOLD MRN: [id number] date: 1985 Sex: F Assigned Patient Location: US Current Patient Location: US Accession/Order Number: [id number] Exam Date: 02/07/2023 09:05 Report Date: 02/07/2023 [...] Liu M.D. Signed By: 02/07/2357 DD/ TD/TT: Felt Hat Steamer: Procedure Note Radiology, Radiologist, - 02/07/2023 [place] [address] Ultrasound Report Signed Patient: PATTI ARNOLD NMR#: [id number] : 1985Acct:[id number] Age/Sex: 38 / FADM Date: 02/07/23 Loc: US Attending Dr: Alden Gutierrez D.O. Ordering Physician: Alden Gutierrez D.O. Date of Service: 02/07/23 Procedure(s): US pelvis w/ transvaginal Accession Number(s): [id number] cc: Heather Shi M.D.; Alden Gutierrez D.O. The [place] [id number] Patient Name: PATTI ARNOLD MRN: [id number] date: 1985 Sex: F Assigned Patient Location: US Current Patient Location: US Accession/Order Number: [id number] Exam Date: 02/07/2023 09:05 Report Date: 02/07/2023 [...] Liu M.D. Signed By:02/07/23956 DD/ 3 TD/TT: Felt Hat Steamer: us Alden Gutierrez DO [facility] Final Result documented in this encounter Visit Diagnoses Not on filedocumented in this encounter Care Teams Computer Operations Manager Relationship Specialty Start Date End Date Andry Bell MD [address] [place] [address] PCP - General 01/24/23 documented as of this encounter
--- OUTSIDE RECORDS SUMMARY | 2024-11-07 11:46 | XMS_ITS | Clinical Summary ---
Author Organization [facility] Address [address] [place] [address] Care Team Providers Care 21 Dealer Name Role Phone Heather Shi MD Primary Care Provider [phone] Allergies Active Allergy Reactions Criticality Noted Date [...] this topic Insurance PPO POS Care Teams 21 Dealer Relationship Specialty Start Date End Date Heather Shi MD PCP - General Family Medicine 12/09/19
--- OUTSIDE RECORDS SUMMARY | 2024-11-07 11:46 | XMS_ITS | Clinical Summary ---
Author Organization [facility] Address [address] [place] [address] Care Team Providers Care Label Sewer Name Role Phone Andry Bell MD Primary Care Provider [phone] Allergies Active Allergy Reactions Criticality Noted Date [...] 10:30 AM EDT [place] [address] Kevin Gutierrez DO Encounter for IUD removal 11/04/2024 Travel 10/28/2024 [place] [phone] Naomy Moreno LPN 10/11/2024 Telephone [facility] [place] [facility] [address] [place] [address] [place] [address] Nia XiaoKATELYNN from Last 3 Months Family History Relation [...] AM EDT Office Visit [facility] [place] [facility] [address] [place] [address] [place] [phone] Kevin Gutierrez DO [address] [place] [address] [place] [address] 01/28/2025 9:20 AM EST Procedure Visit [facility] MA[facility] [address] [place], [place] [address] [phone] Kevin Gutierrez DO [address] [place] [address] [place] [address] Procedures Procedure Name Priority Date/Time Associated Diagnosis Comments IUD REMOVAL Routine 11/05/2024 11:28 AM EDT Encounter for IUD removal POCT , URINE Routine 11/05/2024 11:01 AM EDT Encounter for IUD removal from Last 3 Months Results * IUD Removal (11/05/2024 11:28 AM EDT) Narrative Lindsay Lorenz LPN - 11/05/2024 11:28 AM EDT Lindsay [...] given: yes Instructions and paperwork completed: yes Bohannon protocol: Patient states understanding of procedure being [...] office for annual exam unless needed otherwise Kevin Gutierrez DO IN CLINIC/BEDSIDE ORDERABLES Fin al Result * POCT , urine manually resulted (11/05/2024 11:01 AM EDT) Preg Test, Ur Negative Negative Urine 11/05/2024 11:0 1 AM EDT Kevin Gutierrez DO POINT OF CARE TEST ENTER/EDIT OR DERABLES Final Result from Last 3 Months Insurance [employer] Care Teams Label Sewer Relationship Specialty Start Date End Date Andry Bell MD [address] [place] [phone] PCP - General 01/24/23
--- OUTSIDE RECORDS SUMMARY | 2024-11-07 11:46 | XMS_ITS | Encounter Summary ---
Author Organization [facility] Address [address] [place] [address] Care Team Providers Care Consulting Group Analyst Name Role Phone Andry Bell MD Primary [...] 9:40 AM EDT Office Visit ANIL MAHARAJ [address] [place], [place] [address] [address] Kevin Gutierrez DO [address] [place], [place] [address] 01/28/2025 9:20 AM EST Procedure Visit [facility]IL [facility]AJ [address] [facility] [place] [address] Kevin Gutierrez DO [address] [place], [place] [phone] documented as of this encounter Visit Diagnoses Not on filedocumented in this encounter Care Teams Consulting Group Analyst Relationship Specialty Start Date End Date Andry Bell MD [address] [place] [phone] PCP - General 01/24/23 documented as of this encounter
--- OUTSIDE RECORDS SUMMARY | 2024-11-07 11:46 | XMS_ITS | Encounter Summary ---
Author Organization [facility] Address [address] [place] [address] Care Team Providers Care Farm Contractor Buyer Name Role Phone Andry Bell MD Primary Care Provider [phone] Encounter Details Date Type Department Care Team (Late Contact Info) Description 10/28/2024 Orders Only [facility]IL [facility] [place] [address] Naomy Moreno LPN [address] [place] [address] Social History Tobacco Use Types Packs/Day Years [...] 9:40 AM EDT Office Visit [facility] [place] [address] Kevin Gutierrez DO [address] [place] [address] Dr Niesha Stern, [facility] 01/28/2025 9:20 AM EST Procedure Visit ANIL MAHARAJ [address] [place] [address] [place] [address] Kevin Gutierrez, DO [address] [place] [address] [place] [address] documented as of this encounter Procedures Procedure Name Priority Date/Time Associated Diagnosis Comments PAP SMEAR Routine 01/24/2023 12:00 AM EDT documented in this encounter Results * Pap Smear (01/24/2023 12:00 AM EDT) Swab Cervical swab / Unknown Matt [facility] CYTOLOGY ORDERABLES Final Result EXTERNAL LAB documented in this encounter Visit Diagnoses Not on filedocumented in this encounter Care Teams Farm Contractor Buyer Relationship Specialty Start Date End Date Andry Bell MD [address] [facility] [place] [address] PCP - General 01/24/23 documented as of this encounter
--- OUTSIDE RECORDS SUMMARY | 2024-11-07 11:47 | XMS_ITS | CCD ---
Author Organization [facility] Care Team Providers Care Administrative Professional Name Role Phone Heather Garcia Primary Care Provider [phone] Heather Shi Primary Care Provider CHRISTIAN NASH V Admitting Unavailable CHRISTIAN NASH V Attending Unavailable MICHELLE, DR HEATHER Booker Primary Care Unavailable CHARITY, CHRISTIAN Willson Consulting Unavailable CHRISTIAN NASH V Admitting Unavailable CHRISTIAN NASH V Attending Unavailable MICHELLE, DR HEATHER Booker Primary Care Unavailable CHRISTIAN NASH V Consulting Unavailable MATT ., DR RUANO Admitting Unavailable MATT ., DR RUANO Attending Unavailable MICHELLE, DR HEATHER Booker Primary Care Unavailable MATT ., DR RUANO Consulting Unavailable Heather Shi Unavailable Ray ROY, Andry Camp Primary Care Provider [phone] ALDEN GUTIERREZ Attending Unavailable Allergies Allergy Classification Reported Allergen(s) Allergy Type Date of Onset Reaction(s) Facility (5 sources) Doxycycline Drug Allergy 10-25-2019 Unknown [facility] (5 sources) HYDROmorphone Drug Allergy 10-25-2019 Unknown [facility] (1 source) HYDROmorphone Drug Allergy 07-03-2013 [facility] Medications Current Medications Medication Drug Class(es) Dates Sig (Normalized) Sig (Original) ALPRAZolam 0.25 mg oral tablet (5 sources) Benzodiazepine take 1 tablet by alfredo th in the morning ALPRAZolam (Xanax) 0.25 MG tablet Take 0.25 mg by mouth in the morning. Active Completed/Discontinued Medications Medication Drug Class(es) Dates Sig (Normalized) Sig (Original) DULoxetine 60 mg delayed release oral capsule (1 source) Serotonin and Norepinephrine Reuptake Inhibitor End: 10-30-2019 take 1 capsule by mouth once daily DULoxetine (Cymbalta) [address] Particles capsule DR Take 60 mg by mouth daily. 0 10/30/2019 Discontinued escitalopram 10 mg oral tablet (3 sources) Serotonin Reuptake Inhibitor Start: 02-22-2022 End: 11-05-2024 take 2 tablets by mouth in the morning escitalopram (Lexapro) 10 MG tablet Take 20 mg by mouth in the morning. 02/22/2022 11/05/2024 Discontinued take 1 tablet by alfredo th every twenty-four hours Lexapro 20 MG 1 tablet Orally Once a day Active eszopiclone 2 mg oral tablet (1 source) Start: 11-29-2022 End: 11-05-2024 eszopiclone (Lunesta) 2 MG tablet Take 2 mg by mouth as needed at bedtime for sleep. 11/29/2022 11/05/2024 Discontinued fluconazole 150 mg oral tablet (1 source) Azole Antifungal End: 10-30-2019 take 1 tablet by mouth once fluconazole (Diflucan) 150 MG tablet Take 150 mg by mouth once. 0 10/30/2019 Discontinued levonorgestrel 0.437484 mg/hr intrauterine system (4 sources) Progestin, Progestin-containi ng Intrauterine Device Start: 11-05-2024 End: 11-05-2024 Levonorgestrel intrauterine device 19.5 mg End: 11-05-2024 Levonorgestrel (Mirena, 52 M G,) 20 MCG/DAY intrauterine device 1 Device by Intrauterine route. 11/05/2024 Discontinued levonorgestrel ( Mirena, 52 MG,) 20 MCG/24HR 1 Device by Intrauterine route Once. use as directed 0 Active Problems Active Problems Problem Classification Problem Date Documented Date Episodic/Chronic Anxiety disorders (2 sources) Generalized anxiety disorder; Translations: [Generalized anxiety disorder] Chronic Asthma (2 sources) Asthma; Translations: [Unspecified asthma, uncomplicated] Chronic Contraceptive and procreative management (1 source) Patient encounter status; Translations: [Encounter for removal of intrauterine contraceptive device] 11-05-2024 Episodic Disorders usually diagnosed in infancy, childhood, or adolescence (2 sources) Other specified behavioral and emotional disorders with onset usually occurring in childhood and adolescence; Translations: [Attention deficit disorder (ADD) in adult] Chronic Nonmalignant breast conditions (2 sources) Fibrocystic disease of breast; Translations: [Diffuse cystic mastopathy of unspecified breast] Chronic Nonmalignant breast conditions (3 sources) Breast lump; Translations: [Lump in right breast] Episodic Nonmalignant breast conditions (3 sources) Lump in right breast; Translations: [Mass of breast, right] Onset: 10-30-2019 10-30-2019 Other non-traumatic joint disorders (1 source) Pain in right shoulder Episodic Past or Other Problems Problem Classification Problem Date Documented Date Episodic/Chronic Immunizations and screening for infectious disease (1 source) Encounter for screening for human papillomavirus (HPV); Translations: [ENC SCREENING HUMAN PAPILLOMAVIRUS] Onset: 10-29-2021 Episodic Other screening for suspected conditions (not mental disorders or infectious disease) (4 sources) Encounter for screening for malignant neoplasm of cervix; Translations: [ENC SCREENING MALIG NEOPLASM CERV] Onset: 10-26-2021 Episodic Results Test Name Value Interpretation Reference Range Facility HCG ( test) Ql (U)O rdered By: Naomy Moreno on 11-05-2024 Interpretation and review of laboratory results Normal [facility] Healthcare Work Phone: Preg Test, Ur Negative Negative [facility] Health care Work Phone: [facility] Healthcar e Work Phone: IUD Removalon 11-05-2024 Lindsay Lorenz LPN 11/06/2024 10:44 AM IUD Removal Date/Time: 11/05/2024 11:28 AM Performed by: Alden Gutierrez DO Authorized by: Alden Gutierrez DO Consent: Consent obtained: Written Consent given by: Patient Procedure risks and benefits discussed: yes Patient questions answered: yes Patient agrees, verbalizes understanding, and wants to proceed: yes Educational handouts given: yes Instructions and paperwork completed: yes Downing protocol: Patient states understanding of procedure being [...] office for annual exam unless needed otherwise [facility] Health[facility] e PAP ACOG PANEL 2: 30 to 65on 10-29-2021 . . Normal [facility] Comment on above: Result Comment: Perf ormed at: WB Performed By: #### [id number] #### [facility] [address] [address] [address] Kev Montero Age Gdln ACOG Testing 30-65 Normal [facility] Comment on above: Performed By: #### [id number] #### [facility] [address] [place] [address] Dr. Kev Montero DIAGNOSIS: Comment Normal [facility] Comment on above: Result Comment: NEGA TIVE FOR INTRAEPITHELIAL LESION OR MALIGNANCY. CELLULAR CHANGES ASSOCIATED WITH INFLAMMATION ARE PRESENT. THIS SPECIMEN WAS RESCREENED PART OF OUR WHEEL ROLLER PROGRAM. Performed at: WB Performed By: #### [id number] #### [facility] [address] [place] [address] Dr. Kev Montero HPV Aptima Negative Normal Negative [facility] Comment on above: Result Comment: This nucleic acid amplification test detects fourteen high-risk HPV types (16,18,31,33,35,39,45,51,52,56,58,59,66,68) without differentiation. Performed at: =G Performed By: #### [id number] #### [facility] [address] [place] [address] Dr. Kev Montero Methodology: Comment Normal [facility] Comment on above: Result Comment: This liquid based ThinPrep(R) pap test was screened with the use of an image guided system. Performed at: WB Performed By: #### [id number] #### [facility] [address] [place] [address] Dr. Kev Montero Note: Comment Normal [facility] Comment on above: Result Comment: The Pap smear is a screening test designed to aid in the detection of premalignant and malignant conditions of the uterine cervix. It is not a diagnostic procedure and should not be used as the sole means of detecting cervical cancer. Both false-positive and false-negative reports do occur. . Performed at: WB Performed By: #### [id number] #### [facility] [address] [place] [address] Dr. Kev Montero Performed by: Comment Normal [facility] Comment on above: Result Comment: Felipe Gomez, Pediatrician Active Practice (ASCP) Performed at: WB Performed By: #### [id number] #### [facility] [address] [address] [address] Kev Montero QC reviewed by: Comment Normal [facility] Comment on above: Result Comment: Traci Turner, Supervisory Pediatrician Active Practice (ASCP) Performed at: WB Performed By: #### [id number] #### [facility] [address] [place] [address] Dr. Kev Montero Specimen adequacy: Comment Normal [facility] Comment on above: Result Comment: Sati sfactory for evaluation. Endocervical and/or squamous metaplastic cells (endocervical component) are present. Performed at: WB Performed By: #### [id number] #### [facility] [address] [place] [address] Dr. Kev Montero Vital Signs Date Time Vital Sign Value Performing Clinician Facility 11-05-2024 10:52-0400 Body mass index (BMI) [Ratio] 17.08 kg/m2 [employer] Work Phone: [facility] 11-05-2024 10:52-0400 Body weight 42.37 kg Xencor Matt DO Work Phone: [facility] 11-05-2024 10:52-0400 Diastolic blood pressure 82 mm[Hg] [employer] Work Phone: [facility] 11-05-2024 10:52-0400 Systolic blood pressure 124 mm[Hg] Xencor Matt [employer] Work Phone: [facility] 10-04-2022 14:15-0400 Body height 157.48 cm Heather Shi Other [employer] Other 10-04-2022 14:15-0400 Body mass index (BMI) [Ratio] 18.47 kg/m2 Heather Shi Other [employer] [facility] Other 10-04-2022 14:15-0400 Body weight 45.81 kg Heather Shi Other [employer] [facility] Other 10-04-2022 14:15-0400 Diastolic blood pressure 73 mm[Hg] Heather Shi Other [employer] [facility] Other 10-04-2022 14:15-0400 Systolic blood pressure 128 mm[Hg] Heather Shi Other [employer] Other 12-09-2019 14:36-0400 BMI (Body Mass Index) 21.88 kg/m2 [facility] 12-09-2019 14:36-0400 Body weight 54.25 kg [facility] 12-09-2019 14:36-0400 Height 157.5 cm [facility] 10-30-2019 13:32-0400 BMI (Body Mass Index) 19.77 kg/m2 [facility] 10-30-2019 13:32-0400 Body Temperature 98.6 [degF] [facility] 10-30-2019 13:32-0400 Body weight 49.03 kg [facility] 10-30-2019 13:32-0400 BP Diastolic 92 mm[Hg] [facility] 10-30-2019 13:32-0400 BP Systolic 126 mm[Hg] [facility] 10-30-2019 13:32-0400 Height 157.5 cm [facility] 10-30-2019 13:32-0400 Pulse (Heart Rate) 100 /min [facility] Encounters Encounter Date Encounter Type Care Provider Facility Start: 11-05-2024 End: 11-05-2024 Office outpatient visit 15 minutes Alden Matt DO Work Phone: [facility] Comment on above: Encounter for IUD re moval Start: 11-05-2024 End: 11-05-2024 ambulatory ALDEN GUTIERREZ Not Available Start: 10-05-2022 End: 10-05-2022 ambulatory Heather Shi Other [employer] Other Start: 10-05-2022 Telephone encounter Heather Michelle [facility] Start: 10-04-2022 End: 10-04-2022 ambulatory Heather Michelle Other [employer] Other Start: 10-04-2022 Office outpatient vi sit 15 minutes Heather Shi [facility] Start: 07-04-2022 ambulatory CHRISTIAN NASH Facility:H 1 Start: 12-31-2021 End: 04-11-2022 ambulatory CHRISTIAN NASH Facility:[facility] Start: 10-26-2021 End: 10-26-[address] ALDEN GUTIERREZ . Facility:[facility] Start: 12-09-2019 End: 12-09-2019 Office consultation new/estab patient 60 min Christian Butler Work Phone: [facility] Comment on above: Breast mass (Primary Dx) Start: 10-30-2019 End: 10-30-2019 Office outpatient new 30 minutes Tova Ayala Work Phone: [facility] Comment on above: Mass of breast, righ t (Primary Dx) Procedures Date Procedure Procedure Detail Performing Clinician Start: 11-05-2024 IUD REMOVAL Alden Fazi o DO Work Phone: Start: 11-05-2024 Urine test visual color cmprsn meths Alden Matt DO Work Phone: Plan of Treatment Date Care Activity Detail Author Start: 01-28-2025 End: 01-28-2025 Patient encounter procedure 01/28/2025 9:20 AM EST Procedure Visit [facility]IL [facility] [address] [place] [address] Alden Gutierrez, DO [address] [place] [address] [facility] Start: 11-21-2024 End: 11-21-2024 Patient encounter procedure 11/21/2024 9:40 AM EDT Office Visit [facility]IL [facility] [address] [place] [address] Alden Gutierrez, DO [address] [facility] [place] [address] [facility] Start: 12-11-2019 End: 01-09-2021 MG Breast Views MAMMO DIAGNOSTIC BILATERAL Imaging Routine Breast mass Expected: 12/11/2019, Expires: 01/09/2021 [facility] Comment on above: Expected: 12/11/2019 , Expires: 01/09/2021 Start: 12-11-2019 End: 01-09-2021 Ultrasonography of axilla US AXILLA FOR MAMMOGRAPHY RIGHT Imaging Routine Breast mass Expected: 12/11/2019, Expires: 01/09/2021 [facility] Comment on above: Expected: 12/11/2019 , Expires: 01/09/2021 Start: 12-11-2019 End: 01-09-2021 Ultrasonography of breast US BREAST LIMITED UNILATERAL RIGHT Imaging Routine Breast mass Expected: 12/11/2019, Expires: 01/09/2021 [facility] Comment on above: Expected: 12/11/2019 , Expires: 01/09/2021 Start: 11-26-2019 Influenza vaccination INFLUENZA VACC INE (#1) [facility] Start: 2006 Screening for malign ant neoplasm of cervix CERVICAL CANCER SCREENING DISCUSSION [facility] Start: 01-15-2004 Third diphtheria, te tanus and acellular pertussis (DTaP) vaccination TDAP (ADULT) [facility] Start: 2003 Tetanus vaccination [facility] Start: 1998 HIV screening HIV SCREENING DISCUSSION [facility] Payers Date Payer Category Payer Private Health Insurance [employer] [id number] 2022 Unknown [id number] 2013 Unknown ALANNA MONDRAGON HM O PPO POS [id number] 2013-Present [id number] 1985 Unknown [id number] 1985 Unknown [id number] 1985 Unknown [id number] 1985 Unknown [id number] 1959 Self-pay 1959 Unknown [id number] Social History Date Type Detail Facility Start: 10-30-2019 End: 01-10-2023 Tobacco smoking status [facility] Never smoker [facility] Start: 10-30-2019 End: 12-09-2019 Tobacco use and exposure Never used [facility] Start: 10-30-2019 End: 12-09-2019 Alcohol intake Current drinker of alcohol (finding) [facility] Start: 10-25-2019 Alcohol Comment occasional [facility] Start: 1985 Sex Assigned At Not on file [employer] Start: 11-05-2024 Sex Assigned At [facility] [employer] Other Start: 11-05-2024 Alcoholic beverage intake Not Asked [facility] Start: 11-05-2024 History of Social function [facility] Start: 01-10-2023 Alcohol Comment caffeine: 2-3 cups per day coffee [facility] History of Present illness Narrative 11-05-2024 Lindsay Lorenz LPN - 11/05/2024 10:30 AM EDT Note Date & Type Note Facility 11-05-2024 History of Presen t illness Narrative Associated Order(s): IUD Removal Post-Procedure Diagnose(s): Encounter for [...] nursing note reviewed. Exam conducted with a holistic pulser present. Vitals: Estimated body mass index is 17.08 kg/m as calculated from the following: Height as [...] Removal Date/Time: 11/05/2024 11:28 AM Performed by: Alden Gutierrez DO Authorized by: Alden Gutierrez DO Consent: Consent obtained: Written Consent given by: Patient Procedure risks and benefits discussed: yes Patient questions answered: yes Patient agrees, verbalizes understanding, and wants to proceed: yes Educational handouts given: yes Instructions and paperwork completed: yes Downing protocol: Patient states understanding of procedure being [...] by Lindsay Lorenz LPN on behalf of: Alden Gutierrez DO documented in this encounter [facility] Evaluation note 10-04-2022 Note Date & Type Note Facility 10-04-2022 Evaluation note Encounter Date Diagnosis Assessment Notes Sep, Acute pain of right shoulder (ICD-10 - M25.511) pt agrees to ortho referral and xray. Suspects she had a RC injury [employer] Other Evaluation note Note Date & Type Note Facility Evaluation note No Information [facility] [employer] Other Evaluation note Note Date & Type Note Facility Evaluation note Diagnosis Encounter for IUD removal documented in this encounter [facility] History general Narrative - Reported Note Date & Type Note Facility History general Narrative - Reported Type Medical History Asthma Medical History Attention deficit di sorder (ADD) in adult Medical History Anxiety, generalized Medical History Fibrocystic breast Medical History Lump of breast, right Surgical History LITHOTRIPSY 2006 Surgical History 2008,2013 Surgical History CHOLECYSTECTOMY 2010 Surgical History REMOVAL OF IUD 2019 Surgical History STINT REMOVAL Hospitalization History SEE SURGICAL HX [employer] [facility] Other History of Present Illness * Tova Ayala MD - 10/30/2019 1:30 PM EDT Subjective: Lizeth Arnold is an 34 y.o. female who presents for evaluation of a tender mass of her right breast. She states that she has had this for several years but her SALVAGE CLERK had noted that it has enlarged. This was evaluated with a mammogram in 2018 and found to be C/W benign changes. There is no history of breast cancer in first-degree relatives. Her concern is whether this needs to be removed and the subsequent deformity that may be created because of its size. Allergies Allergen Reactions Dilaudid [Hydromorphone] Doxycycline Hyclate [Doxycycline] Current Outpatient Medications Medication Sig Dispense Refill ALPRAZolam 0.25 MG tablet Take 0.25 mg by mouth 3 times daily as needed. levonorgestrel (Mirena, 52 MG,) 20 MCG/24HR 1 Device by Intrauterine route Once. use as directed No current facility-administered medications for this visit. Past Medical History: Diagnosis Date Anxiety Asthma Past Surgical History: Procedure Laterality Date OTHER SURGICAL 2019 Removal of retained IUD SECTION 2013 CHOLECYSTECTOMY 2010 SECTION 2008 LITHOTRIPSY 2006 Family History Problem Relation Age of Onset Diabetes Maternal Grandfather Other - Specify Mother skin cancer Breast Cancer Maternal Grandmother Maternal Great Grandmother. Other - Specify Paternal Grandfather Skin cancer Social History Socioeconomic History Marital status: Single Spouse name: Not on file Number of children: Not on file Years of education: Not on file Highest education level: Not on file Occupational History Not on file Social Needs Financial resource strain: Not on file Food insecurity Worry: Not on file Inability: Not on file Transportation needs Medical: Not on file Non-medical: Not on file Tobacco Use Smoking status: Never Smoker Smokeless tobacco: Never Used Substance and Sexual Activity Alcohol use: Yes Comment: occasional Drug use: Not on file Sexual activity: Not on file Lifestyle Physical activity Days per week: Not on file Minutes per session: Not on file Stress: Not on file Relationships Social connections Talks on phone: Not on file Gets together: Not on file Attends druze service: Not on file Active member of club or organization: Not on file Attends meetings of clubs or organizations: Not on file Relationship status: Not on file Intimate partner violence Fear of current or ex partner: Not on file Emotionally abused: Not on file Physically abused: Not on file Forced sexual activity: Not on file Other Topics Concern Not on file Social History Narrative Not on file Review of Systems Pertinent items are noted in HPI. No notes on file Objective: BP (!) 126/92 Pulse 100 Temp 98.6 F (37 C) Ht 1.575 m (5' 2 ) Wt 49 kg (108 lb 1.6 oz) BMI 19.77 kg/m Smoking Status Never Smoker Patient with small breasts bilaterally. Density of the right upper outer breast which is mobile beneath the skin, and encompasses approximately 25% of the breast. Bilateral fibrocystic changes No palpable axillary adenopathy. No overlying skin changes or nipple drainage Assessment: Right breast mass--probable fibrocystic Plan: Discussed with the patient that we will have Gen. surgery evaluate the mass and determine whether imaging studies or biopsy is needed In the event she would need any surgery where deformity could be created (because of the size of the mass), we could proceed with corrective or reconstruction procedures documented in this encounter* Alisa Mckeon - 12/09/2019 2:30 PM EDT Nurse Note: Review of Systems Nursing Assessment: Physical Exam Lizeth Arnold is a 34 y.o. female Pt presents today with breast lumps that are tender an painful. Right side bigger then then other. Mammogram was done in Oct 2017. An they were normal. US 2018 was done also. But they have grown since then. Patient states when she gets close to menstruating the pain is worse. Pt states when crossing her arms her breast are worse. documented in this encounter Assessments Diagnosis Mass of breast, right Lump or mass in breast Diagnosis Breast mass- Primary Lump or mass in breast Reason for Referral Status Reason Specialty Diagnoses / Procedures Referred By Contact Referred To Contact Internal Provider - External Schedule Diagnoses Breast mass Procedures US AXILLA FOR MAMMOGRAPHY RIGHT Christian Butler, DO [address] [place] [address] Status Reason Specialty Diagnoses / Procedures Referred By Contact Referred To Contact Internal Provider - External Schedule Diagnoses Breast mass Procedures US BREAST LIMITED UNILATERAL RIGHT Christian Butler, DO [address] [id number] Status Reason Specialty Diagnoses / Procedures Referred By Contact Referred To Contact Internal Provider - External Schedule Diagnoses Breast mass Procedures MAMMO DIAGNOSTIC BILATERAL Christian Butler, DO [address] [place], [place] [id number] Reason fpg ortho - xra y pending. thanks Diagnosis 1 Acute pain of right shoulder (M25.511) Referral Organization [facility] Eyal conroy Referring Provider First Name Heather Referring Provider Last Name Michelle Referring Provider Specialty Family Medi cine Referred Organization [facility] Referred Provider Arnol Hedrick Referred Address [address] [place],[address] Referred Provider Specialty Orthopedic S urgery Referral Priority Routine General Notes Letty Arevalo 03:15:54 PM >received today, waiting on xray report Letty Arevalo 10/05/2022 09:19:06 AM >XR in chart, attached, referral faxed P2P Summary Purpose Family History No Family History Records FoundNo Family History Records Found Advance Directives No Advanced Directives Records FoundNo Advanced Directives Records Found Additional Source Comments Reason for Visit (unrecogniz ed section and content) Reason Comments New Patient patient here for a l ump on her breast both sides they keep getting bigger Status Reason Specialty Diagnoses / Procedures Referred By Contact Referred To Contact Closed Plastic Surgery Diagnoses Fibrocystic breast disease (FCBD), unspecified laterality Alden Gutierrez, DO [address] [facility] [address] [place] [address] Tova Ayala MD [address] [place] [address] Reason Comments New Patient Breast Mass Status Reason Specialty Diagnoses / Procedures Referred By Contact Referred To Contact New Request General Surgery Diagnoses Mass of breast, right Tova Ayala MD [address] [place] [address] Christian Butler DO [address] [place] [address] Reason Comments Contraception Removal/ Reinsert Christian Butler DO - 12/09/2019 2:30 PM EDT H&P Notes (unrecognized sect ion and content) Breast Mass Consultation Lizeth Arnold is a 34 y.o. female who presents to the clinic today for consultation regarding B/L breast masses although worse on the right.. Clinical Care Team: -Referring Provider for today's consult: Tova Ayala MD -Primary Care Provider: Heather Shi History of Present Illness: Chief Complaint Patient presents with New Patient Breast Mass Patient admits to a hx of B/L breast masses she has noted for a few years. Admits to it being cyclic as well. No previous biopsies in the past. The right breast harbors the larger lesion she feels in the outer upper quadrant of the breast. No nipple drainage.. No hormone use No personal or fam hx of of breast cancer. Client Account Assistant/Breast History: Breast cancer risk factors include gender. Patient denies to previous breast biopsy(s). Patient denies a personal history of breast cancer. Social History Social History Narrative Not on file I have reviewed Lizeth Arnold medical, surgical and other pertinent history in detail, and have updated where appropriate in the computerized patient record. Medical/Surgical History: She has a past medical history of Anxiety and Asthma. Her has a past surgical history that includes section (2008); cholecystectomy (2010); section (2013); lithotripsy (2006); and other surgical (2018). Family/Social History: Her Family History Problem Relation Age of Onset Diabetes Maternal Grandfather Other - Specify Mother skin cancer Breast Cancer Maternal Grandmother Maternal Great Grandmother. Other - Specify Paternal Grandfather Skin cancer She reports that she has never smoked. She has never used smokeless tobacco. She reports current alcohol use. No history on file for drug. Medications/Allergies/Immunizations: Her current medication(s) include has a current medication list which includes the following prescription(s): ALPRAZolam 0.25 MG tablet and levonorgestrel (Mirena, 52 MG,) 20 MCG/24HR. Allergies: Dilaudid [hydromorphone] and Doxycycline hyclate [doxycycline], Immunizations: There is no immunization history on file for this patient. Review of Systems: A twelve point review of systems was negative . Physical Exam: General/Constitutional: Well developed, well nourished female who looks their stated age of 34 y.o.. No acute distress. Ht 1.575 m (5' 2 ) Wt 54.3 kg (119 lb 9.6 oz) BMI 21.88 kg/m Smoking Status Never Smoker HEENT: Head: Normocephalic and atraumatic. Eyes: Pupils are equal, round, and reactive to light and accomodation. Extraocular movements are intact. Sclerae are anicteric. Neck: Supple, non-tender. Thyroid normal. Oral opening normal and gag reflex present. Cardiac: Regular rate and rhythm. Normal S1, S2. No murmurs, rubs or gallops. Pulmonary/Chest: Lungs are clear to ascultation bilaterally. No wheezes, rhonchi or rales noted. No kyphosis or scoliosis. No axillary adenopathy. Skin: Skin is warm and dry. Flush, pallor and rash absent. Breast: Breasts appear symmetric. There is a palpable nodule in the 11:00 position of the R breast, mobile and soft about 2-3 cm in size Lymphatics: There is no cervical, supraclavicular or axillary adenopathy present. Abdominal: Soft, non-tender, non-distended. No organomegaly. Extremities: Normal range of motion in all four extremities, with normal strength equally and symmetrically. No cyanosis or clubbing or peripheral edema. Neurological: Conscious, alert and oriented. No focal neurologic deficit. Psychiatric: Appropriate mood and affect for her clinical situation. 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 That being said the safest approach would be to reimage the breast with mammography and ultrasound to determine if there are characteristics concerning for malignacy Lizeth was seen today for new patient. Diagnoses and all orders for this visit: Breast mass - MAMMO DIAGNOSTIC BILATERAL; Future - US BREAST LIMITED UNILATERAL RIGHT; Future - US AXILLA FOR MAMMOGRAPHY RIGHT; Future documented in this encounter INFORMATION SOURCE (unrecogn ized section and content) DATE CREATED AUTHOR [facility]04/2022 [facility] DATE CREATED AUTHOR AUTHOR'S ORGANIZ ATION 11/06/2024 [facility] EPIC Care Teams (unrecognized sec tion and content) Administrative Professional Relationship Specialty Start Date End Date Andry Bell MD [address] [place] [address] PCP - General 01/24/23 FOR RECORDS PERTAINING TO PATIENTS WHO ARE OR HAVE BEEN ENROLLED IN A CHEMICAL DEPENDENCY/SUBSTANCEABUSE PROGRAM, SOME INFORMATION MAY BE OMITTED. This clinical summary was aggregated from multiple sources. Caution should be exercised in using it in the provision of clinical care. This summary normalizes information from multiple sources, and as a consequence, information in this document may materially change the coding, format and clinical context of patient data. In addition, data may be omitted in some cases. CLINICAL DECISIONS SHOULD BE BASED ON THE PRIMARY CLINICAL RECORDS. [employer] provides no warranty or guarantee of the accuracy or completeness of information in this document.
[2024-11-07 11:53] LABS: Hematocrit 39.3 % (36.0-48.0); Hemoglobin 13.1 g/dL (12.0-16.0); Immature Granulocytes Abs Auto 0.02 10^3/uL (0.00-0.03); Immature Granulocytes Pct Auto 0.3 % (0.0-0.5); Lymphocytes Absolute Auto 1.6 10^3/uL (1.2-3.8); Mean Corpuscular HGB Conc 33.3 g/dL (29.9-35.2); Mean Corpuscular Hemoglobin 34.0 pg (26.7-34.0); Mean Corpuscular Volume 102.1 fL (81.0-99.0); Platelet Count 272 10^3/uL (150-450); Red Blood Count 3.85 10^6/uL (4.20-5.40); White Blood Count 6.6 10^3/uL (4.0-11.0)
[2024-11-07 12:05] VITALS: BP 115/67; PULSE 67; TEMP 36.4; O2SAT 100; BMI 16.9
[2024-11-07 13:25] VITALS: BP 116/69; PULSE 65; TEMP 36.4; O2SAT 95
--- NOTE | 2024-11-07 13:26 | PM.ONB ---
Brief Operative Note Date of procedure: 11/07/24 Pre-op diagnosis general: retained iud Post-op diagnosis: same as pre-op Procedure: NAME OF PROCEDURE: [d&c hysteroscopy, placement of iud] PROCEDURE: The patient was taken back to the Operating Room where she was prepped and draped in normal sterile fashion after being placed under general anesthesia without difficulty. She was also placed in the dorsal lithotomy position. A weighted speculum was placed in the patient?s vagina. The anterior lip of the cervix was identified and grasped with a single tooth tenaculum. The patient?s uterus was then sounded roughly to [? 8] cm. The patient was then gently dilated using Hegar dilators. the polyp forcep was used to grasp the iud and it was removed without difficulty, a new iud was then placed using the kyleena device. The single tooth tenaculum was then removed from the patient's anterior lip of the cervix where excellent hemostasis was noted. Anesthesia: MAC Surgeon: Kevin Gutierrez Estimated blood loss (mL): 5 Pathology: none sent Condition: stable Disposition: PACU Urinary Catheter Management Urinary Catheter Management Urethral: Cath placed during this visit: no
[2024-11-07 13:40] VITALS: BP 121/73; PULSE 52; O2SAT 96
[2024-11-07 13:55] VITALS: BP 141/83; PULSE 55; O2SAT 100
[2024-11-07 14:25] VITALS: BP 128/79; PULSE 60; O2SAT 100
== END 2024-11-07 14:25 | disposition home or self-care (01) ==
PROVIDERS: PCP Family Medicine; Visit Provider Obstetrics & Gynecology
PROC: (CPT 940; principal; 2024-11-07 13:00)
DX: T83.89XA Other specified complication of genitourinary prosthetic devices, implants and grafts, initial encounter (principal); Z90.49 Acquired absence of other specified parts of digestive tract; J45.909 Unspecified asthma, uncomplicated; F41.9 Anxiety disorder, unspecified; F32.A Depression, unspecified
CPT/HCPCS: 58300; 58301; 36415; 84702; 85025; J1100; J1200; J1885; J2250; J2405; J2704; J3010

== ENCOUNTER 2025-01-28 12:20 | Outpatient (REF) | payer OTHER, SELFPAY ==
--- OUTSIDE RECORDS SUMMARY | 2024-07-12 05:30 | XMS_ITS ---
Author Organization The [facility] in [place] Address [address] [place] [address] Care Team Providers Care Flask Maker Name Role Phone Alejandro Bell Primary Care Provider REASON FOR VISIT 6mo med check- CSA Encounters Encounter Location Date Provider Diagnosis [facility] [address] [place] [address] 07/12/2024 Alejandro Bell Plan Of Treatment No Information Progress Notes * CATALINAJossalciraDOB:1985 ( 40 yo F)Acc No.[id number]:07/12/2024 UNLOCKED PROGRESS NOTE Progress Note Patient: Lizeth Camp AAS :?Andry Bell (AMANDEEP), MDDOB:1985???Age: 39 Y???Sex:FemaleDate:07/12/2024Phone:[phone]:[address] [place] [address] [address], [facility] Subjective: * Chief Complaints: * 1 . 6mo med check- CSA. * Medical History: Objective: * Vitals: Assessment: Plan: * Treatment: * * Electronic signature of Alejandro Bell MD, [id number] on 01/28/2025 at 12:25 PM EST Sign off status: PendingVisit Status:?OFF CANC (OFFICE CANCEL) * Provider: Guero CharlesTTCMD Jasmina Date: 0 07/12/2024 Generated for Printing/Faxing/eTransmitting on:?01/28/2025 12:25 PM EST
--- OUTSIDE RECORDS SUMMARY | 2025-01-28 09:20 | XMS_ITS | Encounter Summary ---
Author Organization [facility] Address [address] [place] [address] Care Team Providers Care Cognos Name Role Phone Andry Bell MD Primary Care Provider [phone] Reason for Visit * ReasonCommentsGynecologic Exam Encounter Details DateTypeDepartmentCare Team (Latest Contact Info)Kxrsbuhypcn95/04/2025 9:20 AM ESTProcedure Visit [facility] [address] [place] [address] Kevin Gutierrez DO [address] [place], [place] [id number] Well woman exam with routine gynecological exam; Encounter for screening mammogram for malignant neoplasm of breast; Mass of left breast, unspecified quadrant Social History Tobacco UseTypesPacks/DayYears UsedDateSmoking Tobacco: NeverSmokeless Tobacco: Never Tobacco Cessation:Counseling Given: Not Answered Alcohol UseStandard Drinks/WeekCommentsYes3 (1 standard drink = 0.6 oz pure alcohol)caffeine: 2-3 cups per day coffeeCommentsNoSex and Gender InformationValueDate RecordedSex Assigned at BirthNot on fileLegal SexFemale 06/08/2022 7:09 PM EDTGender IdentityNot on fileSexual OrientationNot on file documented as of this encounter Last Filed Vital Signs Vital SignReadingTime TakenCommentsBlood Iyuktgux68/6601/28/2025 9:29 AM EST Pulse--Temperature--Respiratory Rate--Oxygen Saturation--Inhaled Oxygen Concentration--Wnnfiz19.2 kg (90 lb 12.8 oz)01/28/2025 9:29 AM LIICjusiy541.5 cm (5' 2 )01/28/2025 9:29 AM ESTBody Mass Index16.6101/28/2025 9:29 AM EST documented in this encounter Plan of Treatment DateTypeDepartmentCare Team (Latest Contact Info)Fzesyrfltcv54/12/2026 9:00 AM ESTProcedure Visit [facility] [address] [place] [address] Kevin Gutierrez DO [address] [place] [address] NameTypePriorityAssociated DiagnosesOrder ScheduleBilateral screening mammogram ImagingRoutine Encounter for screening mammogram for malignant neoplasm of breast Expected: 01/28/2025 (Approximate), Expires: 03/30/2026THIN PREP TIS PAP AND HR HPV DNAPathology and CytologyRoutine Well woman exam with routine gynecological exam Ordered: 01/28/2025documented as of this encounter Visit Diagnoses Diagnosis Well woman exam with routine gynecological exam Routine gynecological examination Encounter for screening mammogram for malignant neoplasm of breast Mass of left breast, unspecified quadrant documented in this encounter Care Teams Team MemberRelationshipSpecialtyStart DateEnd Date Andry Bell MD [address] [facility] [place] [address] PCP - Qqkwjvx45/31/23documented as of this encounter
--- OUTSIDE RECORDS SUMMARY | 2025-01-28 12:25 | XMS_ITS | Clinical Summary ---
Author Organization [facility] Address [address] [place] [address] Care Team Providers Care Global Implementation Manager Name Role Phone Heather Shi MD Primary Care Provider [phone] Allergies Active AllergyReactionsCriticalityNoted DjvtApvhxkzrHnevikfwhnqbj90/31/2020 Wexbtnkgprd18/31/2020 Medications MedicationSigDispense QuantityRefillsLast FilledStart DateEnd DateStatus ALPRAZolam 0.25 MG tablet Take 0.25 mg by mouth 3 times daily as needed.Active levonorgestrel (Mirena, 52 MG,) 20 MCG/24HR 1 Device by Intrauterine route Once. use as directedActive Active Problems ProblemNoted DateDiagnosed DateMass of breast, right10/30/2019 Family History Medical HistoryRelationNameCommentsDiabetesMaternal GrandfatherBreast Cancer Maternal GrandmotherMaternal Great Grandmother.Other - SpecifyMotherskin cancer Other - SpecifyPaternal GrandfatherSkin cancerRelationNameStatusCommentsMaternal GrandfatherMaternal GrandmotherMotherPaternal Grandfather Social History Tobacco UseTypesPacks/DayYears UsedDateSmoking Tobacco: NeverSmokeless Tobacco: NeverAlcohol UseStandard Drinks/WeekCommentsYes0 (1 standard drink = 0.6 oz pure alcohol)occasionalCommentsUnknownSex and Gender InformationValueDate RecordedSex Assigned at BirthNot on fileLegal FmoEvepot46/31/2020 9:51 AM EDT Gender IdentityNot on fileSexual OrientationNot on file Last Filed Vital Signs Vital SignReadingTime TakenCommentsBlood Zgodbgci692/9210/30/2019 1:32 PM EDT Kfyni79734/05/2020 1:32 PM TNMWwassrkgwaz41 ??C (98.6 ??F)10/30/2019 1:32 PM EDT Respiratory Rate--Oxygen Saturation--Inhaled Oxygen Concentration--Uythiz21.3 kg (119 lb 9.6 oz)12/09/2019 2:36 PM VVCYydfzx077.5 cm (5' 2 )12/09/2019 2:36 PM EDTBody Mass Index21.8812/09/2019 2:36 PM EDT Plan of Treatment Health MaintenanceDue DateLast DoneCommentsHEPATITIS C VIRUS IZTDKAGCM1985 XGPCFJT09 1985HIV SCREENING BSEGLRXFCJ32/21/2000HEP B VACCINE (1 of 3 - 19+ 3-dose series)01/15/2004TDAP (ADULT)01/15/2004CERVICAL CANCER SCREENING ZPDXDWDCOV75/21/2006HPV VACCINE (1 - 3-dose SCDM series)01/15/2012COVID-19 VACCINE (2024- season)2024INFLUENZA VACCINE (#1)2024LIPID PAPDTWSIE69/21/2025MAMMOGRAM SCREENING TRUWIAXYFE89/21/2025PNEUMOCOCCAL VACCINE SERIESAged OutNo longer eligible based on patient's age to complete this topic Insurance Care Teams Team MemberRelationshipSpecialtyStart DateEnd Date Heather Shi MD PCP - GeneralFamily Medicine12/09/19
--- OUTSIDE RECORDS SUMMARY | 2025-01-28 12:25 | XMS_ITS | Encounter Summary ---
Author Organization [facility] Address [address] [facility] [place] [address] Care Team Providers Care Platform Loader Name Role Phone Andry Bell MD Primary Care Provider [phone] Encounter Details DateTypeDepartmentCare Team (Latest Contact Info)Rhbwhdkmpdk03/04/2025Travel Social History Tobacco UseTypesPacks/DayYears UsedDateSmoking Tobacco: NeverSmokeless Tobacco: NeverAlcohol UseStandard Drinks/WeekCommentsYes3 (1 standard drink = 0.6 oz pure alcohol)caffeine: 2-3 cups per day coffeeCommentsNoSex and Gender InformationValueDate RecordedSex Assigned at BirthNot on fileLegal SexFemale 06/08/2022 7:09 PM EDTGender IdentityNot on fileSexual OrientationNot on file documented as of this encounter Plan of Treatment DateTypeDepartmentCare Team (Latest Contact Info)Otnahseofyp76/12/2026 9:00 AM ESTProcedure Visit [facility] [address] [address] Kevin Gutierrez DO [address] [place] [address] documented as of this encounter Visit Diagnoses Not on filedocumented in this encounter Care Teams Team MemberRelationshipSpecialtyStart DateEnd Andry Bell MD [address] [facility] [place] [address] PCP - Iclzdkw29/31/23documented as of this encounter
--- OUTSIDE RECORDS SUMMARY | 2025-01-28 12:25 | XMS_ITS | Encounter Summary ---
Author Organization [facility] Address [address] [place] [address] Care Team Providers Care Ditch Digger Name Role Phone Andry Bell MD Primary Care Provider [phone] Encounter Details DateTypeDepartmentCare Team (Latest Contact Info)Kupkunehygz49/04/2025amboo flowsheet [facility] [address] [place] [address] [place] [address] Kevin Gutierrez DO [address] [place] [address] Dr [place] [place], [place] [address] Social History Tobacco UseTypesPacks/DayYears UsedDateSmoking Tobacco: NeverSmokeless Tobacco: NeverAlcohol UseStandard Drinks/WeekCommentsYes3 (1 standard drink = 0.6 oz pure alcohol)caffeine: 2-3 cups per day coffeeCommentsNoSex and Gender InformationValueDate RecordedSex Assigned at BirthNot on fileLegal SexFemale 06/08/2022 7:09 PM EDTGender IdentityNot on fileSexual OrientationNot on file documented as of this encounter Plan of Treatment DateTypeDepartmymichigan medical centerCare Team (Latest Contact Info)Egdqzuufeef73/12/2026 9:00 AM ESTProcedure Visit [facility] [address] [place] [address] [place] [address] Kevin Gutierrez DO [address] [place] [address] Dr [place], [facility] documented as of this encounter Visit Diagnoses Not on filedocumented in this encounter Care Teams Team MemberRelationshipSpecialtyStart DateEnd Date Andry Bell MD [address] [place] [address] PCP - Jvrhytq30/31/23documented as of this encounter
--- OUTSIDE RECORDS SUMMARY | 2025-01-28 12:25 | XMS_ITS | Clinical Summary ---
Author Organization [facility] Address [address] [place] [address] Care Team Providers Care Preschool Assistant Director Name Role Phone Andry Bell MD Primary Care Provider [phone] Allergies Active AllergyReactionsCriticalityNoted TdxeXujinuheEtynseqmqlo00/31/2020 Medications MedicationSigDispense QuantityRefillsLast FilledStart DateEnd DateStatus ALPRAZolam (Xanax) 0.25 MG tablet Take 0.25 mg by mouth in the morning.Active Encounters DateTypeDepartmentCare NviaIesdrlkloxm32/04/2025 9:20 AM ESTProcedure Visit [facility] [address] [place] [address] Kevin Gutierrez, DO Well woman exam with routine gynecological exam; Encounter for screening mammogram for malignant neoplasm of breast; Mass of left breast, unspecified ubmihqbf35/04/2025amboo flowsheet [facility] [address] [place] [address] Kevin Gutierrez, DO 01/28/20250945Loonum89/03/2025 3:20 PM EDTOffice Visit [facility] [address] [place] [address] Kevin Gutierrez, DO Postop check11/27/2024amboo flowsheet [facility] [address] [place] [address] Kevin Gutierrez, DO 11/27/20240072Iaqcjs65/14/2025bstract [facility] [address] [place] [address] Kevin Gutierrez, DO 11/07/2024bstract [facility] [address] [place] [address] Kevin Gutierrez, DO 11/07/2024linisync Result Encounter [facility] Department Unsolicited Kevin Gutierrez, DO 11/06/2024bstract [facility] [address] [place] [address] Kevin Gutierrez, DO 11/05/2024 10:30 AM EDTProcedure Visit [facility] [address] [place] [address] Kevin Gutierrez, DO Encounter for IUD wcdljxq4311/04/20249086Uiiyog74/04/2025Orders Only [facility] [address] [place] [address] Naomy Moreno LPN from Last 3 Months Family History Medical HistoryRelationNameCommentsCancerFatherDadDiabetesMaternal Grandfather RdtvxguAycvutmwSrumyyKifmjnhVlhcteszSeytDdvrdlIotoehgyQeqjpgi7EnjvxbMzaEnidg Maternal UqgvghrwvyjHrazvspFmpmeTuowueAxhefctUnckoElamfm0Zlg 1AliveSon 2Alive Social History Tobacco UseTypesPacks/DayYears UsedDateSmoking Tobacco: NeverSmokeless Tobacco: Never Tobacco Cessation:Counseling Given: Not Answered Alcohol UseStandard Drinks/WeekCommentsYes3 (1 standard drink = 0.6 oz pure alcohol)caffeine: 2-3 cups per day coffeeCommentsNoSex and Gender InformationValueDate RecordedSex Assigned at BirthNot on fileLegal SexFemale 06/08/2022 7:09 PM EDTGender IdentityNot on fileSexual OrientationNot on file Last Filed Vital Signs Vital SignReadingTime TakenCommentsBlood Bpjsrfej28/6601/28/2025 9:29 AM EST Pulse--Temperature--Respiratory Rate--Oxygen Saturation--Inhaled Oxygen Concentration--Olguxk72.2 kg (90 lb 12.8 oz)01/28/2025 9:29 AM UCFNtpnxn347.5 cm (5' 2 )01/28/2025 9:29 AM ESTBody Mass Index16.6101/28/2025 9:29 AM EST Plan of Treatment DateTypeDepartmentCare Team (Latest Contact Info)Zjqedgzbeya40/12/2026 9:00 AM ESTProcedure Visit [facility] [address] [place] [address] Kevin Gutierrez, DO [address] [facility] [address] [place] [address] Procedures Procedure NamePriorityDate/TimeAssociated DiagnosisCommentsTBH PREG QUANT HCG Kxvphsa0511/07/2024 11:48 AM EDT ALL CBC WITH AUTO WOARQbxefyx56/14/2025 11:48 AM EDT IUD DJDKMRNCinwfif41/12/2025 11:28 AM EDT Encounter for IUD removal POCT , ODQKURzkxsnt30/12/2025 11:01 AM EDT Encounter for IUD removal from Last 3 Months Results * [facility]H PREG QUANT HCG (11/07/2024 11:48 AM EDT)ComponentValueRef RangeTest Method Analysis TimePerformed AtPathologist SignatureHCG QUANTITATIVE<1mIU/mLTBH Comment: 5-50 ? 0.2-1 WEEK 50-500 ? 1-2 WEEKS 100-5,000 ?2-3 WEEKS 500-10,000 ? 3-4 WEEKS 1,000-50,000 ?? 4-5 WEEKS 10,000-100,000 5-6 WEEKS 15,000-200,000 6-8 WEEKS 10,000-100,000 2-3 MONTHS Specimen (Source)Anatomical Location / LateralityCollection Method / Volume Collection TimeReceived Time11/07/2024 11:48 AM EDT11/07/2024 11:50 AM EDT Narrative KELLY - 11/07/2024 12:25 PM EDT Authorizing ProviderResult TypeResult StatusCorey Matt DOCLINISYNCFinal Result Performing OrganizationAddressCity/State/ZIP CodePhone Number [facility]ANTHONYN[facility] * (ABNORMAL) ALL CBC WITH AUTO DIFF (11/07/2024 11:48 AM EDT)ComponentValueRef RangeTest MethodAnalysis TimePerformed AtPathologist SignatureTBH WBC6.64.0 - 11.0 10 3/uLTBHTBH RBC3.85(L)4.20 - 5.40 10 6/uLTBHTBH HGB13.112.0 - 16.0 g/dL TBHTBH HCT39.336.0 - 48.0 %TBHTBH VLS586.1(H)81.0 - 99.0 fLTBHTBH MCH34.026.7 - 34.0 pgTBHTBH MCHC33.329.9 - 35.2 g/dLTBHTBH RDW11.511.0 - 15.0 %TBHTBH PLT 291144 - 450 10 3/uLTBHTBH MPV9.59.5 - 13.5 fLTBHNEUTROPHILS PERCENT AUTO61.7 43.0 - 75.0 %TBHLYMPHOCYTES PERCENT AUTO24.720.5 - 60.0 %TBHMONOCYTES PERCENT AUTO7.51.7 - 12.0 %TBHTBH EO %5.30.9 - 7.0 %TBHBASOPHILS PERCENT AUTO0.50.2 - 2.0 %TBHIMMATURE GRANULOCYTES PCT AUTO0.30.0 - 0.5 %TBHNEUTROPHILS ABSOLUTE AUTO4.11.4 - 6.5 10 3/uLTBHLYMPHOCYTES ABSOLUTE AUTO1.61.2 - 3.8 10 3/uLTBH MONOCYTES ABSOLUTE AUTO0.50.3 - 0.8 10 3/uLTBHTBH EO #0.40.0 - 0.7 10 3/uLTBH BASOPHILS ABSOLUTE AUTO0.00.0 - 0.1 10 3/uLTBHIMMATURE GRANULOCYTES ABS AUTO 0.020.00 - 0.03 10 3/uLTBHSpecimen (Source)Anatomical Location / Laterality Collection Method / VolumeCollection TimeReceived Time11/07/2024 11:48 AM EDT 11/07/2024 11:50 AM EDT David MENDOZA - 11/07/2024 11:59 AM EDT Authorizing ProviderResult TypeResult Parvin Gutierrez DOCLINISYNCFinal Result Performing OrganizationAddressCity/State/ZIP CodePhone Number KELLY [facility] * IUD Removal (11/05/2024 11:28 AM EDT) Narrative Lindsay Lorenz LPN - 11/05/2024 11:28 AM EDT Lindsay Lorenz LPN 11/06/2024 10:44 AM IUD Removal Date/Time: 11/05/2024 11:28 AM Performed by: Kevin Gutierrez DO Authorized by: Kevin Gutierrez DO ?? Consent: ??Consent obtained: ??Written ??Consent given by: ??Patient ??Procedure risks and benefits discussed: yes ?Patient questions answered: yes ?Patient agrees, verbalizes understanding, and wants to proceed: yes ?Educational handouts given: yes ?Instructions and paperwork completed: yes ?? [place] protocol: ??Patient states understanding of procedure being performed: yes ?Relevant documents present and verified: yes ?Test results available and properly labeled: yes ?Imaging studies available: yes ?Required blood products, implants, devices, and special equipment available: yes ?Site marked: yes ?? Procedure: ??Removed with no complications: no ?? Comments: ?? IUD Removal: Patient presents today for removal [...] signed and pt to proceed to OR. ?? Follow Up: Patient is to return to the office for annual exam unless needed otherwise Authorizing ProviderResult TypeResult Parvin [facility]/B[facility]IDE ORDERABLESFinal Result * POCT , urine manually resulted (11/05/2024 11:01 AM EDT)Component ValueRef RangeTest MethodAnalysis TimePerformed AtPathologist SignaturePreg Test, UrNegativeNegativeSpecimen (Source)Anatomical Location / Laterality Collection Method / VolumeCollection TimeReceived MsmnYckms62/12/2025 11:01 AM EDT Narrative Authorizing ProviderResult TypeResult StatusCorey Matt DOPOINT OF CARE TEST ENTER/EDIT ORDERABLESFinal Result from Last 3 Months Insurance Care Teams Team MemberRelationshipSpecialtyStart DateEnd Andry Bell MD [address] [place] [address] PCP - Hqzihcy37/31/23
--- OUTSIDE RECORDS SUMMARY | 2025-01-28 12:25 | XMS_ITS | Patient Health Record ---
Author Organization [facility] [place] Address [address] [place] [address] Care Team Providers Care [employer]ge Helper Name Role Phone Alejandro Bell Primary Care Provider [phone] Arelis Yañez [phone] Allergies No Known Allergies Results Component Value Reference Range Notes CBC AUTO DIFF Reviewed date:11/07/2024 01:14:37 PM Interpretation: Performing Lab: Notes/Report: [facility] , White Blood Count 6.6 4.0-11.0 10 3/uL Red Blood Count3.854.20-5.40 10 6/bJShoyqpsxwd27.112.0-16.0 g/yNRddmtbntuv70.3 36.0-48.0 %Mean Corpuscular Kmzfch159.181.0-99.0 fLMean Corpuscular Hemoglobin 34.026.7-34.0 pgMean Corpuscular HGB Conc33.329.9-35.2 g/dLRed Cell Distribution Width11.511.0-15.0 %Platelet Ipkwj436754-395 10 3/uLMean Platelet Volume9.59.5- 13.5 fLNeutrophils Percent Auto61.743.0-75.0 %Lymphocytes Percent Auto24.720.5- 60.0 %Monocytes Percent Auto7.51.7-12.0 %Eosinophils Percent Auto5.30.9-7.0 % Basophils Percent Auto0.50.2-2.0 %Immature Granulocytes Pct Auto0.30.0-0.5 % Neutrophils Absolute Auto4.11.4-6.5 10 3/uLLymphocytes Absolute Auto1.61.2-3.8 10 3/uLMonocytes Absolute Auto0.50.3-0.8 10 3/uLEosinophils Absolute Auto0.40.0- 0.7 10 3/uLBasophils Absolute Auto0.00.0-0.1 10 3/uLImmature Granulocytes Abs Auto0.020.00-0.03 10 3/uLPerforming Lab:see noteML - [facility] LB PREG QUANT HCG Reviewed date:11/07/2024 01:14:37 PM Interpretation: Performing Lab: Notes/Report: [facility] ,HCG Quantitative<1 5-50 0.2-1 WEEK 50-500 1-2 WEEKS 15,000-200,000 6-8 WEEKS 500-10,000 3-4 WEEKS 10,000-100,000 2-3 MONTHS 100-5,000 2-3 WEEKS 1,000-50,000 4-5 WEEKS 10,000-100,000 5-6 WEEKS Performing Lab:see noteML - [facility] LBCBC AUTO DIFF Reviewed date:11/12/2024 08:00:35 PM Interpretation: Performing Lab: Notes/Report: [facility] ,White Blood Count5.74.0-11.0 10 3/uLRed Blood Count4.054.20-5.40 10 6/uL Jqoagdpeqt45.312.0-16.0 g/zMUrqbbszhqz66.036.0-48.0 %Mean Corpuscular Volume 101.281.0-99.0 fLMean Corpuscular Rqwhlsdbgn69.826.7-34.0 pgMean Corpuscular HGB Conc32.429.9-35.2 g/dLRed Cell Distribution Width11.511.0-15.0 %Platelet Count 607187-747 10 3/uLMean Platelet Odhtwk36.29.5-13.5 fLNeutrophils Percent Auto 45.043.0-75.0 %Lymphocytes Percent Auto38.520.5-60.0 %Monocytes Percent Auto9.3 1.7-12.0 %Eosinophils Percent Auto6.50.9-7.0 %Basophils Percent Auto0.50.2-2.0 % Immature Granulocytes Pct Auto0.20.0-0.5 %Neutrophils Absolute Auto2.61.4-6.5 10 3/uLLymphocytes Absolute Auto2.21.2-3.8 10 3/uLMonocytes Absolute Auto0.50.3-0.8 10 3/uLEosinophils Absolute Auto0.40.0-0.7 10 3/uLBasophils Absolute Auto0.00.0- 0.1 10 3/uLImmature Granulocytes Abs Auto0.010.00-0.03 10 3/uLPerforming Lab:see noteML - [facility] LBLIPID PROFILE Reviewed date:11/12/2024 08:00:35 PM Interpretation: Performing Lab: Notes/Report: [facility] ,Ykcxhulqqnyxf21<=150 mg/qIQjeerwbkcwz889<=200 mg/dLHDL Qrnbmffsguw79788-62 mg/dL <40 mg/dl - HIGH CARDIOVASCULAR RISK > or =60 mg/dl - LOW CARDIOVASCULAR RISK LDL Cholesterol Zcpwpokgsr207.0 160-189 mg/dl HIGH 100-129 mg/dl NEAR OR ABOVE OPTIMAL >190 mg/dl VERY HIGH 130-159 mg/dl BORDERLINE HIGH <100 mg/dl OPTIMAL VLDL KQRLOIYDZTC44.2Chol HDL Ratio2.0 3.3 - 4.4 LOW RISK 4.4 - 7.1 AVERAGE RISK >11.0 HIGH RISK 7.1 - 11.0 MODERATE RISK Performing Lab:see noteML - [facility] LBPROF 14(COMP METB) Reviewed date:11/12/2024 08:00:35 PM Interpretation: Performing Lab: Notes/Report: [facility] ,Pkyovg852076-404 mmol/LPotassium4.03.5-5.1 mmol/MNhhrudjr83906-537 mmol/LCarbon Omausje49.321.0-32.0 mmol/LAnion Gap12.1Bwyhwgm5699-052 mg/dLBlood Urea Nitrogen 9.07.0-18.0 mg/dLCreatinine0.790.55-1.02 mg/dLEstimated GFR ( Evelyne>60 >=60 mL/min/1.73m 2Estimated GFR (Non- Emily>60>=60 mL/min/1.73m 2BUN Creatinine Ratio11.5Ubadysi8.28.5-10.1 mg/dLBilirubin Total0.40.2-1.0 mg/dL Aspartate Amino Ypregmjxiob4307-03 U/LAlanine Kelfcanjrtrkjdpb1942-99 U/L Alkaline Vkyxeiailkd6888-138 U/LTotal Protein7.76.4-8.2 g/dLAlbumin Level4.43.4- 5.0 g/dLGlobulin3.3Albumin Globulin Ratio1.3Performing Lab:see noteML - [facility] Reviewed date:11/12/2024 08:00:35 PM Interpretation: Performing Lab: Notes/Report: [facility] ,Thyroid Stimulating Hormone1.6080.358-3.740 uIU/mLPerforming Lab:see noteML - [facility] Reason For Referral No Information Medications Medication SIG (Take, Route, Frequency, Duration) Notes Start Date End Date Status Fioricet 50-300-40 MG 1 capsule as needed Orally every 4 hrs - prn Dx Migraine (G43.1) , [id number] 4ActiveALPRAZolam 0.25 MG 1 tablet Orally once daily as needed F41.9 5ActiveAdderall 5 MG1 tablet Orally Daily5ActiveVentolin HFA 108 (90 Base) MCG/ACT2 puff as needed Inhalation every 4 hrs4Active Social History Tobacco Use: Social History Observation Description Date Details (start date - stop date) Never Smoker NA - NA Alcohol Screen (Audit-C) Question Answer Notes Did you have a drink containing alcohol in the p ast year? Yes How often did you have 6 or more drinks on one occasion in the past year?Never (0 point)How many drinks did you have on a typical day when you were drinking in the past year?5 or 6 drinks (2 points)How often did you have a drink containing alcohol in the past year?Monthly (2 points)Dyffhf1WtmdpwjdmknnssIzzxhytqSffuprm Control (Standard) Question Answer Notes Tobacco use: Nonsmoker AUDIT-C (Standard) Question Answer Notes Did you have a drink containing alcohol in the p ast year? Yes How often did you have six or more drinks on one occasion in the past year?Never (0 point)How many drinks did you have on a typical day when you were drinking in the past year?1 or 2 drinks (0 point)How often did you have a drink containing alcohol in the past year?2 to 3 times a week (3 points)Ggixxs8Jdlpbynmowmxbw Positive Problems Problem Type SNOMED Code ICD Code Onset Dates Problem Status W/U Status Risk Notes Problem Calculus of kidney (40838835) Calculus of kidney (N20.0) ActiveconfirmedProblemAnxiety (31767654)Anxiety (F41.9)ActiveconfirmedProblem Depression (466750094)Depression (F32.9)ActiveconfirmedProblemMigraine (86511920)Migraine (G43.909)ActiveconfirmedProblemAttention deficit hyperactivity disorder (318831587)ADHD (F90.9)Activeconfirmed Vital Signs Blood pressure diastolic 68 mm Hg 07/15/2024 Zgbvyx00.5 in07/15/2024lood pressure ptdlgqre173 mm Hg07/15/20247391Wbroqs81.6 lbs 07/15/2024BMI17.2 kg/m207/15/2024 Encounters Encounter Location Date Provider Diagnosis [facility] [address] [place] [address] 07/15/2024 Alejandro Hoy Depression F32.9 ; Anxiety F41.9 ; ADHD F90.9 and Well adult exam Z00.00 [facility] [address] [place] [address] 02/16/2024 Alejandro Hoy ADHD F90.9 [facility] [address] [place] [address] 03/06/2024 Alejandro Hoy Migraine G43.909 [facility] [address] [place] [address] 03/07/2024 Alejandro Hoy Migraine G43.909 [facility] [address] [place] [address] 03/19/2024 Alejandro Hoy ADHD F90.9 [facility] [address] [place] [address] 04/19/2024 Alejandro Hoy ADHD F90.9 [facility] [address] [place] [address] 05/14/2024 Alejandro Hoy [facility] [place] [address] 05/21/2024[facility]AD[facility]90.9[facility] [facility] [place] [address]/11/2024[facility]AD[facility]90.9[facility] [facility] [address]/Doug HoyADHD F90.9 [facility] [facility] [address] 09/17/2024[facility]ADHD F90.9[facility] [facility] [address]/09/2024Doug [facility]oyADHD F90.9[facility] [address] [facility] [address]/01/2025Doug HoyADHD F90.9B[facility] [facility] [address]/ Arelis CramerADHD F90.9 and Migraine G43.909 Assessments Encounter Date Diagnosis (ICD Code) Assessment Notes Treatment Notes Treatment Clinical Notes Section Notes 02/16/2024 ADHD (ICD-10 - F90.9) 03/06/2024Migraine (ICD-10 - G43.909)03/07/2024Migraine (ICD-10 - G43.909) 4ADHD (ICD-10 - F90.9)5ADHD (ICD-10 - F90.9)5ADHD (ICD-10 - F90.9)5ADHD (ICD-10 - F90.9)5ADHD (ICD-10 - F90.9) 5ADHD (ICD-10 - F90.9)5ADHD (ICD-10 - F90.9)5ADHD (ICD-10 - F90.9)5Anxiety (ICD-10 - F41.9)cuttin back on alporazolam 07/15/2024Depression (ICD-10 - F32.9)able to wean of rtlkysu52DHD (ICD- 10 - F90.9)07/15/2024DHD (ICD-10 - F90.9)able to wan adhd meds1 Migraine (ICD-10 - G43.909)07/15/2024Well adult exam (ICD-10 - Z00.00) Plan Of Treatment Pending Test Test Name Order Date HEMOGLOBIN A1C (GLYCO) 07/15/2024 IRON, TOTAL 07/15/2024 LIPID PANEL (CHOL/TRIG/HDL/LDL) 07/16/19 25 VITAMIN D, 25 LEVEL (TOTAL) 07/15/2024 Insulin Level 07/15/2024 STOOL OCCULT BLOOD 07/15/2024 THYROID PANEL (T4/TSH/FREE T3) CMP (COMP MET [place]) w/eGFR CKD-EPI 2024 CBC WITH DIFF 07/15/2024 Insurance Providers Payer Name Payer Address Payer Phone Subscriber Number Group Number Insured Name Patient Relationship to Insured Coverage Start Date Coverage End Date MMO [address] [facility], [facility] [id number] Natan Arnold - patient is the insured Medications Administered Medication Instructions Date of Administration Dosage Notes Ketorolac Tromethamine 0 mgKetorolac Pagdgbhgmdgs57/05/860113 mg Medical (General) History Medical History History ICD Code Asthma J45.909 Anxiety F41.9 Depression F32.9 Fibrocystic breast N60.19 Lump of right breast N63.10 Migraine G43.909 Surgical History Surgery Date(Month/Year) DELIVERYx2 CHOLECYSTECTOMYMirena removal
--- OUTSIDE RECORDS SUMMARY | 2025-01-28 12:31 | XMS_ITS | CCD ---
Author Organization [facility] Care Team Providers Care Group Teacher Name Role Phone Heather Garcia Primary Care Provider [phone] Heather Shi Primary Care Provider [phone] CHRISTIAN NASH V Admitting Unavailable CHRISTIAN NASH V Attending Unavailable MICHELLE, DR HEATHER Booker Primary Care Unavailable CHRISTIAN NASH V Consulting Unavailable CHRISTIAN NASH V Admitting Unavailable CHRISTIAN NASH V Attending Unavailable MICHELLE, DR HEATHER Booker Primary Care Unavailable CHRISTIAN NASH V Consulting Unavailable MATT ., DR RUANO Admitting Unavailable MATT ., DR RUANO Attending Unavailable MICHELLE, DR HEATHER Booker Primary Care Unavailable MATT ., DR RUANO Consulting Unavailable Heather Shi Unavailable Andry Bell MD Primary Care Provider [phone] ALDEN GUTIERREZ Attending Unavailable ALDEN GUTIERREZ Attending Unavailable Andry Bell MD Primary Care Provider [phone] Allergies Allergy ClassificationReported Allergen(s)Allergy TypeDate of OnsetReaction(s) Facility (10 sources)DoxycyclineDrug Hzsazpe79-05-2766BjlgtxtXIHFF HEALTH (7 sources)HYDROmorphoneDrug Syxubut68-68-6513IiaxjvoXCRFX HEALTH (1 source)HYDROmorphoneDrug Mjyltth25-46-8756Ron [facility] Repository Medications Current Medications MedicationDrug Class(es)DatesSig (Normalized)Sig (Original)ALPRAZolam 0.25 mg oral tablet (10 sources)Benzodiazepinetake 1 tablet by mouth in the morningALPRAZolam (Xanax) 0.25 MG tablet Take 0.25 mg by mouth in the morning. Active Completed/Discontinued Medications MedicationDrug Class(es)DatesSig (Normalized)Sig (Original)DULoxetine 60 mg delayed release oral capsule (1 source)Serotonin and Norepinephrine Reuptake Inhibitor End: 69-57-9013tvrn 1 capsule by mouth once dailyDULoxetine (Cymbalta) [address] Particles capsule DR Take 60 mg by mouth daily. 0 10/30/2019 Discontinued escitalopram 10 mg oral tablet (3 sources)Serotonin Reuptake InhibitorStart: 02-22-2022 End: 00-11-6603ciud 2 tablets by mouth in the morningescitalopram (Lexapro) 10 MG tablet Take 20 mg by mouth in the morning. 02/22/2022 11/05/2024 Discontinued take 1 tablet by mouth every twenty-four hoursLexapro 20 MG 1 tablet Orally Once a day Activeeszopiclone 2 mg oral tablet (1 source)Start: 11-29-2022 End: 52-79-8702ysoszibmwnz (Lunesta) 2 MG tablet Take 2 mg by mouth as needed at bedtime for sleep. 11/29/2022 11/05/2024 Discontinuedfluconazole 150 mg oral tablet (1 source)Azole Antifungal End: 85-97-6084vfzi 1 tablet by mouth oncefluconazole (Diflucan) 150 MG tablet Take 150 mg by mouth once. 0 10/30/2019 Discontinuedlevonorgestrel 0.052482 mg/hr intrauterine system (4 sources)Progestin, Progestin-containing Intrauterine DeviceStart: 11-05-2024 End: 45-41-1781Nobjxvqisycphu intrauterine device 19.5 mg End: 80-46-1957Ifdosabmzraxem (Mirena, 52 MG,) 20 MCG/DAY intrauterine device 1 Device by Intrauterine route. 11/05/2024 Discontinuedlevonorgestrel (Mirena, 52 MG,) 20 MCG/24HR 1 Device by Intrauterine route Once. use as directed 0 Active Problems Active Problems Problem ClassificationProblemDateDocumented DateEpisodic/ChronicAnxiety disorders (2 sources)Generalized anxiety disorder; Translations: [Generalized anxiety disorder]ChronicAsthma (2 sources)Asthma; Translations: [Unspecified asthma, uncomplicated]Chronic Contraceptive and procreative management (1 source)Patient encounter status; Translations: [Encounter for removal of intrauterine contraceptive device]90-19-9188SfsppozcMboqofocb usually diagnosed in infancy, childhood, or adolescence (2 sources)Other specified behavioral and emotional disorders with onset usually occurring in childhood and adolescence; Translations: [Attention deficit disorder (ADD) in adult]ChronicNonmalignant breast conditions (2 sources)Fibrocystic disease of breast; Translations: [Diffuse cystic mastopathy of unspecified breast]ChronicNonmalignant breast conditions (3 sources)Breast lump; Translations: [Lump in right breast]EpisodicNonmalignant breast conditions (3 sources)Lump in right breast; Translations: [Mass of breast, right]Onset: Other aftercare (2 sources)Surgical follow-up; Translations: [Encounter for follow-up examination after completed treatment for conditions other than malignant neoplasm]63-49-1326DeqiejqyDjixx non-traumatic joint disorders (1 source)Pain in right shoulderEpisodic Past or Other Problems Problem ClassificationProblemDateDocumented DateEpisodic/ChronicImmunizations and screening for infectious disease (1 source)Encounter for screening for human papillomavirus (HPV); Translations: [ENC SCREENING HUMAN PAPILLOMAVIRUS]Onset: 72-12-5652SmagcysfVekcw screening for suspected conditions (not mental disorders or infectious disease) (4 sources)Encounter for screening for malignant neoplasm of cervix; Translations: [ENC SCREENING MALIG NEOPLASM CERV]Onset: 89-71-7427Nkgwtmlw Results Test NameValueInterpretationReference RangeFacilityALL CBC WITH AUTO DIFFon 83-61-8260LSCJRPCSM ABSOLUTE MNPG8DKUW HealthcareBasophils/100 WBC (Bld)0.5 %0.2 - 2.0 %[facility] HealthcareEosinophils/100 WBC (Bld)5.3 %0.9 - 7.0 %[facility] Erythrocyte distribution width (RBC) [Ratio]11.5 %11.0 - 15.0 %[facility] Hematocrit (Bld) [Volume fraction]39.3 %36.0 - 48.0 %[facility] HealthcareHemoglobin (Bld) [Mass/Vol]13.1 g/dL12.0 - 16.0 g/dLNOMS HealthcareIMMATURE GRANULOCYTES ABS AUTO0.02NOMS HealthcareImmature granulocytes/100 WBC (Bld)0.3 %0.0 - 0.5 % [facility] HealthcareInterpretation and review of laboratory resultsAbnormalNOMS HealthcareLYMPHOCYTES ABSOLUTE AUTO1.6N[facility]S HealthcareLymphocytes/100 WBC (Bld) 24.7 %20.5 - 60.0 %[facility] HospitalH (RBC) [Entitic mass]34 pg26.7 - 34.0 pg [facility] HospitalHC (RBC) [Mass/Vol]33.3 g/dL29.9 - 35.2 g/dLSalem Memorial District HospitalV (RBC) [Entitic vol]102.1 hYDpuh45.0 - 99.0 fLPike County Memorial HospitalMONOCYTES ABSOLUTE AUTO0.5NOMS HealthcareMonocytes/100 WBC (Bld)7.5 %1.7 - 12.0 %[facility] NEUTROPHILS ABSOLUTE AUTO4.1N[facility]S [facility] LimaNeutrophils/100 WBC (Bld)61.7 %43.0 - 75.0 %[facility] HospitalPlatelet mean volume (Bld) [Entitic vol]9.5 fL9.5 - 13.5 fL [facility] HospitalTB EO #0.4NOSaint Mary's Health CenterTB MGQ875RSQPSaint Joseph Health Center RBC3.85Low [facility] WBC6.6NONV HealthcareCLINISYNCNThe Rehabilitation InstituteHCG ( test) Ql (U)Ordered By: Naomy Moreno on 57-74-5334Jzacenloavjppk and review of laboratory resultsNormalNOMS Healthcare Work Phone: preg Test, UrNegativeNegativeNOMS Healthcare Work Phone: NONV Healthcare Work Phone: IUD Removalon 65-99-5546ZrrqcLindsay Lorenz LPN 11/06/2024 10:44 AM IUD Removal Date/Time: 11/05/2024 11:28 AM Performed by: Alden Gutierrez DO Authorized by: Alden Gutierrez DO Consent: Consent obtained: Written Consent given by: Patient Procedure risks and benefits discussed: yes Patient questions answered: yes Patient agrees, verbalizes understanding, and wants to proceed: yes Educational handouts given: yes Instructions and paperwork completed: yes [place] protocol: Patient states understanding of procedure being [...] the office for annual exam unless needed otherwiseM[facility] Hospital [facility] ACOG PANEL 2: 30 to 65on 10-29-2021..NormalThe [facility] HospitalComment on above:Result Comment: Performed at: WBPerformed By: #### [id number] #### [facility] [address] [place] [address] Dr. Kev Barbosa Gdln ACOG Ivvjbbi91-21GsatyzGemMercy Health St. Charles HospitalComment on above:Performed By: #### [id number] #### [facility] [address] [place] [address] Dr. Kev MonteroDIAGNOSIS:CommentKettering Health Washington Township on above: Result Comment: NEGATIVE FOR INTRAEPITHELIAL LESION OR MALIGNANCY. CELLULAR CHANGES ASSOCIATED WITH INFLAMMATION ARE PRESENT. THIS SPECIMEN WAS RESCREENED PART OF OUR FARROWING MANAGER PROGRAM. Performed at: WBPerformed By: #### [id number] #### [facility] [address] [place] [address] Dr. Kev MonteroHPV AptimaNegativeNormalNegativeCleveland Clinic Euclid HospitalComhenry ford [facility] on above:Result Comment: This nucleic acid amplification test detects fourteen high-risk HPV types (16,18,31,33,35,39,45,51,52,56,58,59,66,68) without differentiation. Performed at: =GPerformed By: #### [id number] #### [facility] [address] [place] [address] Dr. Kev MonteroMethodology:CommentKettering Health Washington Township on above: Result Comment: This liquid based ThinPrep(R) pap test was screened with the use of an image guided system. Performed at: Performed By: #### [id number] #### [facility] [address] [place] [address] Dr. Kev MonteroNote:CommentKettering Health Washington Township on above:Result Comment: The Pap smear is a screening test designed to aid in the detection of premalignant and malignant conditions of the uterine cervix. It is not a diagnostic procedure and should not be used as the sole means of detecting cervical cancer. Both false-positive and false-negative reports do occur. . Performed at: WBPerformed By: #### [id number] #### [facility] [address] [place] [address] Dr. Kev MonteroPerformed by:CommentKettering Health [facility] Township on above: Result Comment: Jacob Gomez, Inspector Plumbing (ASCP) Performed at: WBPerformed By: #### [id number] #### [facility] [address] [place] [address] Dr. Kev MonteroQC reviewed by:CommentKettering Health Washington Township on above:Result Comment: Kimi Turner, Supervisory Inspector Plumbing (ASCP) Performed at: WBPerformed By: #### [id number] #### [facility] [address] [place] [address] Dr. Kev MonteroSpecimen adequacy:[facility] on above:Result Comment: Satisfactory for evaluation. Endocervical and/or squamous metaplastic cells (endocervical component) are present. Performed at: WBPerformed By: #### [id number] #### [facility] [address] [place] [address] Dr. Kev Montero Vital Signs Date TimeVital SignValuePerforming QsumqqfzxVynljegw24-75-8317 15:36-0400Body mass index (BMI) [Ratio]16.35 kg/t7Wifof Matt DO Work Phone: [facility] HospitalSxqlbfbudh56-29-8519 15:36-0400Body zijetc36.55 kgCorey Matt DO Work Phone: [facility] HospitalQccepvqefh85-20-6738 15:36-0400Diastolic blood swluidgt48 mm[Hg]Alden Matt DO Work Phone: [phone] [place] [address] Oxgoshwbsn97-24-2838 15:36-0400Systolic blood gxdnutpr016 mm[Hg]Alden Matt DO Work Phone: [phone] Knwsdxtxfb51-63-6842 10:52-0400Body mass index (BMI) [Ratio]17.08 kg/t0Wtwbo Matt DO Work Phone: [phone]-CRITTENTON BEHAVIORAL HEALTHCIHIBttxaepnvs81-84-6884 10:52-0400Body .37 kgCorey Matt DO Work Phone: [phone] [place] [address] Ggeafumnkw70-63-7774 10:52-0400Diastolic blood ctwdybnt31 mm[Hg]Alden Matt DO Work Phone: [phone] Twsvpydtwk96-45-7993 10:52-0400Systolic blood mm[Hg]Alden Matt DO Work Phone: [phone] [place] [address] Uduefrwtbx42-78-3930 14:15-0400Body ruajbo542.48 cmHeather Shi Other Service [employer]eking Other 07-11-2023 14:15-0400Body mass index (BMI) [Ratio] 18.47 kg/f0VlcjibHeather Shi Other Service Seeking Other 07-11-2023 14:15-0400Body cpcvhy00.81 kgHeather Shi Other Service Seeking Other 07-11-2023 14:15-0400Diastolic blood dkimrmzp23 mm[Hg] Heather Shi Other [employer] Other 07-11-2023 14:15-0400Systolic blood niphtilq607 mm[Hg] Heather Shi Other [employer] Other 09-14-2020 14:36-0400BMI (Body Mass Index)21.88 kg/m2 [facility]09-14-2020 14:36-0400Body bjdsla11.25 kgDalorraine [facility]09-14-2020 14:36-7503Ptsytb985.5 cmDalorraine [facility]08-05-2020 13:32-0400BMI (Body Mass Index)19.77 kg/m8GkurziValley Behavioral Health System08-05-2020 13:32-0400Body Udfthilyjei91.6 [degF][facility]08-05-2020 13:32-0400Body ixuruz15.03 kgValley Behavioral Health System08-05-2020 13:32-0400BP Lnraafsgs22 mm[Hg][facility] 10-30-2019 13:32-0400BP Tcgeljnf020 mm[Hg][facility]08-05-2020 13:32-6411Jbsiuz796.5 cmTUVA Health University Hospital08-05-2020 13:32-0400Pulse (Heart Rate)100 /minTerSentara [facility]burg [facility] Encounters Encounter DateEncounter TypeCare ProviderFacilityStart: 01-28-2025 End: 65-51-7977Eubflo flowsheetCorey Matt DO Work Phone: [facility] [place] OBGYNStart: 01-28-2025 End: 88-62-1627Uarfyq flowsheetCorey Matt DO Work Phone: [facility] OBGYNStart: 11-27-2024 End: 78-98-8416Knqqbp follow up visit related to original pxCorey Matt DO Work Phone: [facility] [place] OBGYNComment on above:Postop checkStart: 11-27-2024 End: 35-97-1550ccodxadopfZAJNC FAZIONot AvailableStart: 11-27-2024 End: 27-44-0499Dmjptv flowsheetCorey Matt DO Work Phone: [facility] [place] [facility]BGYNStart: 11-27-2024 End: 47-80-5843Casyne flowsheetCorey Matt DO Work Phone: [facility]BGYNStart: 11-07-2024 End: 89-51-4840Baiuhzryz Result EncounterCorey Matt DO Work Phone: noms External Department UnsolicitedStart: 11-07-2024 End: 41-24-7271Ztimtekij Result EncounterCorey Matt DO Work Phone: n[facility] External Department UnsolicitedStart: 11-05-2024 End: 97-60-8423Krjawn outpatient visit 15 minutesCorey Matt DO Work Phone: [facility] OBGYNComment on above:Encounter for IUD removalStart: 11-05-2024 End: 14-70-5221kfsedoomkkSOBAH FAZIONot AvailableStart: 10-05-2022 End: 78-13-2831ndbqzjelzcIfvhsx Michelle Other noZipano Other Start: 23-70-1532Trltvzmgv encounterMarcia MichelleUniversity Hospitals Ahuja Medical Centertart: 10-04-2022 End: 45-54-3225xalmpiowrlHdtqoa Michelle Other Service Seeking Other Start: 10-52-5137Ibysjt outpatient visit 15 minutes Heather ShiOhio State Harding Hospital ClinicStart: 62-47-5717mckvtdbnghBDIIL V WEST Facility:V6Xdxdp: 12-31-2021 End: 50-80-4823pzugiyqbteWRMVZ V WESTFacility:E2Slcog: 10-26-2021 End: 33-93-1489phnmpdaotxCC ALDEN MATT .Facility:M8Jvgjc: 12-09-2019 End: 94-45-0380Ypdmcf consultation new/estab patient 60 minDavid S Luke Work Phone: [facility] General SurgeryComment on above:Breast mass (Primary Dx)Start: 10-30-2019 End: 18-94-1695Zifptz outpatient new 30 minutesTeresa Jamie Work Phone: [facility] Plastic SurgeryComment on above: Mass of breast, right (Primary Dx) Procedures DateProcedureProcedure DetailPerforming ClinicianStart: 40-70-2131MQR CBC WITH AUTO DIFFCorey Matt DO Work Phone: Start: 83-03-5231TML REMOVALCorey Matt DO Work Phone: Start: 18-53-9879Eolnc test visual color cmprsn methsCorey Matt DO Work Phone: Plan of Treatment DateCare ActivityDetailAuthorStart: 01-28-2025 End: 05-42-5258Qsahakl encounter procedureNOMS Natalie OBGYNComment on above: ArrivedStart: 11-27-2024 End: 10-25-5658Vfwcpzz encounter leorhuwsh55/03/2025 3:20 PM EDT Office Visit [facility] [place] [place] [phone] Alden Gutierrez, DO [address] [place] [address] ArrivedNOMS Natalie OBGYNComment on above:ArrivedStart: 11-21-2024 End: 01-76-3012Rfrtgfq encounter yumknvwsv74/28/2025 9:40 AM EDT Office Visit [facility] OBDERIANN [address] [place] [phone] Alden Gutierrez DO [address] [place] [address] [facility] OBGYNStart: 12-11-2019 End: 86-69-4847DK Breast ViewsMAMMO DIAGNOSTIC BILATERAL Imaging Routine Breast mass Expected: 12/11/2019, Expires: 01/09/[address] [address] [facility]Comment on above:Expected: 12/11/2019, Expires: 01/09/2021tart: 12-11-2019 End: 24-74-5136Kolxromcbcxlwtw of axillaUS AXILLA FOR MAMMOGRAPHY RIGHT Imaging Routine Breast mass Expected: 12/11/2019, Expires: 01/09/2021[facility] Comment on above:Expected: 12/11/2019, Expires: 01/09/2021tart: 12-11-2019 End: 74-00-9428Kuyjnnesqkftkpu of breastUS BREAST LIMITED UNILATERAL RIGHT Imaging Routine Breast mass Expected: 12/11/2019, Expires: 01/09/20[address] HospitalComment on above:Expected: 12/11/2019, Expires: 01/09/2021tart: 71-05-2768Utmdkfbxh vaccinationINFLUENZA VACCINE (#1)[facility]: 69-54-6003Oznsaqpzw for malignant neoplasm of cervixCERVICAL CANCER SCREENING DISCUSSIONWilson [facility]: 17-61-6214Hlbqf diphtheria, tetanus and acellular pertussis (DTaP) vaccinationTDAP (ADULT)[facility]: 27-21-4965Pkguoui vaccinationTETANUSARiverview Health Institute: 98-17-5472NGL screeningHIV SCREENING DISCUSSIONMERCY HEALTH [facility] Payers DatePayer CategoryPayerPolicy [id number] Health InsuranceMEDICAL MUTUAL [id number] 20-00-6568UqyiiftXKINIM ANTHEM HMO PPO POS [id number] 2013-Present [id number]-[id number] Social History DateTypeDetailFacilityStart: 10-30-2019 End: 48-67-1537Vrjjbxh smoking status NHISNever smokerNOMS HealthcareStart: 10-30-2019 End: 39-14-6378Mxmzngn use and exposureNever usedAVITA HEALTHStart: 10-30-2019 End: 93-63-8083Ogvogvb intakeCurrent drinker of alcohol (finding)[facility] Start: 32-79-5723Zwqrryx CommentoccasionalAVITA HEALTHStart: 51-89-6860Kmo Assigned At BirthNot on fileAVITA HEALTHStart: 94-63-0952Axc Assigned At Service Seeking Other Start: 42-67-2245Dsemcivci beverage intakeNot Asked [facility] HealthcareStart: 69-12-0275Aojnbqh of Social functionNOMS HealthcareStart: 37-01-0206Pwgfktr Commentcaffeine: 2-3 cups per day coffeeNOMS HealthcareStart: 95-74-3990OukNjqcglPPBI Healthcare History of Present illness Narrative 11-27-2024 Note Date & KtshHndwMaominpm02-57-8041 History of Present illness Narrative* Lindsay Lorenz, DIESEL DINKEY OPERATOR - 11/27/2024 3:20 PM EDT Reason for Appointment: Patient ID: Lizeth Arnold is a 39 y.o. female who presents for Post-op Visit Patient presents today for 2 Week Post Op Follow Up appointment. MEDICATIONS Current Outpatient Medications Medication Instructions ALPRAZolam (XANAX) 0.25 mg, Daily ALLERGIES Allergies Allergen Reactions Doxycycline PROBLEMS Active Ambulatory Problems Diagnosis Date Noted [...] No family history on file. SURGICAL HISTORY No past surgical history on file. REVIEW OF SYSTEMS Review of Systems: Review of Systems Constitutional: Negative. HENT: Negative. Eyes: Negative. Respiratory: Negative. Cardiovascular: Negative. Gastrointestinal: Negative. Genitourinary: Negative. Musculoskeletal: Negative. Skin: Negative. Neurological: Negative. All other systems reviewed and are negative. Hematological: Negative. Endocrine: Negative. Allergic/Immunologic: Negative. OBJECTIVE Objective: Physical Exam Constitutional: Appearance: Normal appearance. She is well-developed. Cardiovascular: Rate and Rhythm: Normal rate and [...] nursing note reviewed. Exam conducted with a manager administration present. Vitals: Estimated body mass index is 16.35 kg/m as calculated from the following: Height as of 04/01/19: 5' 2 . Weight as of this encounter: 89 lb 6.4 oz. BP: 102/62 No LMP recorded. (Menstrual status: IUD). ASSESSMENT & PLAN ICD-10-CM 1. Postop check Z09 Pt presents for postop, kyleena insertion and mirena insertion. Pt to return for annual exam. Documented by Lindsay Lorenz LPN on behalf of: Alden Gutierrez DO documented in this encounterNOMS Healthcare History of Present illness Narrative 11-05-2024 Note Date & PijuExkcKhzsbzlx95-96-5506 History of Present illness Narrative* Lindsay Lorenz LPN - 11/05/2024 10:30 AM [...] nursing note reviewed. Exam conducted with a manager administration present. Vitals: Estimated body mass index is [...] given: yes Instructions and paperwork completed: yes [place] protocol: Patient states understanding of procedure being [...] of: Alden Gutierrez DO documented in this encounterNONV Healthcare Evaluation note 10-04-2022 Note Date & ZsokZpywBmztwcpy61-50-2926 Evaluation note* Encounter Date Diagnosis Assessment Notes Treatment Notes Treatment Clinical Notes Sep, Acute pain of right shoulder (IC D-10 - M25.511) pt agrees to ortho referral and xray. Suspects she had a RC injury [employer] [facility] Other Evaluation note Note Date & TypeNoteFacilityEvaluation noteNo InformationNortFriends Hospital [facility] Other Evaluation note Note Date & TypeNoteFacilityEvaluation note* Diagnosis Encounter for IUD removal documented in this encounter [facility] Evaluation note Note Date & TypeNoteFacilityEvaluation note* Diagnosis Postop check Follow-up examination, following unspecified surgery documented in this encounter [facility] History general Narrative - Reported Note Date & TypeNoteFacilityHistory general Narrative - Reported* Type Description Date Medical History Asthma Medical HistoryAttention deficit disorder (ADD) in adultMedical HistoryAnxiety, generalizedMedical HistoryFibrocystic breastMedical HistoryLump of breast, right Surgical XqneveqCDMCZDQGMRY2146Grwtjezy HistoryC-BCSZOKF2269,2014Surgical SrmvezcWYPSROUIWLQVSSK5469Ppgiuisa HistoryREMOVAL OF NJU1550Hebxedvg History STINT REMOVALHospitalization HistorySEE SURGICAL HX [employer] [facility] Other History of Present Illness * Tova Ayala MD - 10/30/2019 1:30 PM EDT Subjective: Lizeth Arnold is an 34 y.o. female who presents for evaluation of a tender mass of her right breast. She states that she has had this for several years but her COM WRITER had noted that it has enlarged. This [...] Removal of retained IUD SECTION 2013 CHOLECYSTECTOMY 2011 SECTION 2009 LITHOTRIPSY 2007 Family History Problem Relation Age of Onset [...] file Gets together: Not on file Attends rastafarian service: Not on file Active member of [...] or mass in breast Reason for Referral StatusReasonSpecialtyDiagnoses / ProceduresReferred By ContactReferred To ContactInternal Provider - External Schedule Diagnoses Breast mass Procedures US AXILLA FOR MAMMOGRAPHY RIGHT Christian Butler, DO [address] [place] [address] StatusReasonSpecialtyDiagnoses / ProceduresReferred By ContactReferred To ContactInternal Provider - External Schedule Diagnoses Breast mass Procedures US BREAST LIMITED UNILATERAL RIGHT Christian Butler, DO [address] [place] [address] StatusReasonSpecialtyDiagnoses / ProceduresReferred By ContactReferred To ContactInternal Provider - External Schedule Diagnoses Breast mass Procedures MAMMO DIAGNOSTIC BILATERAL Christian Butler, DO [address] [place] [address] Reason fpg ortho - xra y pending. thanks Diagnosis 1 Acute pain of right shoulder (M25.511) Referral Organization [facility] Eyal conroy Referring Provider First Name Heather Referring Provider Last Name Michelle Referring Provider Specialty Family [facility] Referred Organization [facility] Riccardo Ortho pedics Referred Provider Arnol Hedrick Referred Address [address] [place],[address] Referred Provider Specialty Orthopedic S urgery Referral [...] for Visit (unrecogniz ed section and content) ReasonCommentsNew Patientpatient here for a lump on her breast both sides they keep getting biggerStatusReasonSpecialtyDiagnoses / ProceduresReferred By ContactReferred To ContactClosedPlastic Surgery Diagnoses Fibrocystic breast disease (FCBD), unspecified laterality Alden Gutierrez, DO [address] [address] [place] [address] Tova Ayala MD [address] [place] [address] ReasonCommentsNew PatientBreast MassStatusReasonSpecialtyDiagnoses / Procedures Referred By ContactReferred To ContactNew RequestGeneral Surgery Diagnoses Mass of breast, right Tova Ayala MD [address] [place] [id number] Christian Butler DO [address] [place] [id number] ReasonCommentsContraceptionRemoval/ ReinsertReasonCommentsPost-op Visit Christian Butler DO - 12/09/2019 2:30 PM [...] breast harbors the larger lesion she feels inthe outer upper quadrant of the breast. No nipple drainage.. No hormone use No personal or fam hx of of breast cancer. Breaker Tender/Breast History: Breast cancer risk factors include gender. [...] are equal, round, and reactive to light andaccomodation. Extraocular movements are intact. Sclerae are anicteric. Neck: Supple, non-tender. Thyroid normal. Oral opening normal and gag reflex present. Cardiac: Regular rate and rhythm. Normal S1, S2. No murmurs, rubs or gallops. Pulmonary/Chest: Lungs are clear to ascultation bilaterally. No wheezes, rhonchi or rales noted. Nokyphosis or scoliosis. No axillary adenopathy. Skin: Skin is warm and dry. Flush, pallor and rash absent. Breast: Breasts appear symmetric. There is a palpable nodule in the 11:00 position of the R breast,mobile and soft about 2-3 cm in size [...] and content) DATE CREATED AUTHOR 07/04/2022 [facility] DATE CREATED AUTHOR 'S ORGANIZ ATION 11/29/2024 [facility] Care Teams (unrecognized sec tion and content) Team MemberRelationshipSpecialtyStart DateEnd Date Andry Bell MD [address] [place] [address] PCP - [id number]/31/23Te MemberRelationshipSpecialtyStart DateEnd Date Andry Bell MD [address] [place] [address] PCP - [id number]/31/23Te MemberRelationshipSpecialtyStart DateEnd Date Andry Bell MD [address] [facility] [place] [address] PCP [facility]01/24/23Te MemberRelationshipSpecialtyStart DateEnd Andry Bell MD [address] [place] [address] PCP - [id number]/31/23 FOR RECORDS PERTAINING TO PATIENTS WHO ARE [...] BE BASED ON THE PRIMARY CLINICAL RECORDS. [facility] [employer] [facility]. provides no warranty or guarantee of the accuracy or completeness of information in this document.
[2025-02-01 01:08] LABS: Age Gdln ACOG Testing Note (.); HPV Genotype 18,45 Negative (Negative); IGP, Aptima HPV, rfx 16/18,45 Note (.)
== END 2025-01-28 12:21 | disposition home or self-care (01) ==
LOC: LAB 12:20
PROVIDERS: PCP Family Medicine; Visit Provider Obstetrics & Gynecology
DX: Z01.419 Encounter for gynecological examination (general) (routine) without abnormal findings (principal)
CPT/HCPCS: 87624; 88175